=== PATIENT | female | born 1955 | race Caucasian/White ===

== ENCOUNTER → 2016-08-11 | Outpatient (CLI) | payer OTHER ==
[~2016-08-11] MED LIST: ADVIN25050 INH; CYCL10TA6 PO; LOPELIQ6 PO; ZNTT/150 PO
[2016-08-11 14:45] LABS: BASO % 0.7 %; BASO ABS # 0.05 K/uL (0-0.2); COMPLETE YES; EOS % 4.2 %; HEMATOCRIT 40.6 % (37-47); IG% 0.3 %; LYMPH % 31.5 %; LYMPH ABS # 2.38 K/uL (1.2-3.4); MEAN CELL VOLUME 88.1 fL (80-100); MEAN CORPUSCULAR HEMOGLOBIN 29.7 pg (25-34); MEAN CORPUSCULAR HGB CONC 33.7 g/dl (32-36); MEAN PLATELET VOLUME 12.3 fL (7.4-10.4); MONO % 7.9 %; NEUT % 55.4 %; PLATELET COUNT 227 K/uL (130-400); RED BLOOD COUNT 4.61 M/uL (4.2-5.4); WHITE BLOOD COUNT 7.55 K/uL (4.8-10.8)
[2016-08-11 15:00] LABS: ALT/SGPT 31 U/L (12-78); BLOOD UREA NITROGEN 22 mg/dl (7-18); BUN/CREATININE RATIO 18.7 (10-20); CALCIUM 9.2 mg/dl (8.5-10.1); CARBON DIOXIDE 24 mmol/L (21-32); CHLORIDE 107 mmol/L (98-107); CHOLESTEROL 204 mg/dl (0-200); GLUCOSE 78 mg/dl (70-99); POTASSIUM 3.8 mmol/L (3.5-5.1); SODIUM 142 mmol/L (136-145); TRIGLYCERIDES 213 mg/dl (0-150); VERY LOW DENSITY LIPOPROT CALC 43 mg/dl
[2016-08-11 15:09] LABS: ALB/GLOB RATIO 0.9 (0.9-2); ALKALINE PHOSPHATASE 64 U/L (45-117); AST/SGOT 25 U/L (15-37); CHOLESTEROL/HDL RATIO 3.5; HDL CHOLESTEROL 59 mg/dl; LDL CHOLESTEROL CALCULATED 102 mg/dl; TOTAL IRON BINDING CAPACITY 311 mcg/dl (250-450)
[2016-08-11 15:33] LABS: PROLACTIN 4.49 ng/mL; TESTOSTERONE,TOTAL 15.3 ng/dl
[2016-08-17 18:17] LABS: GLIADIN DEAMIDATED IgA AB 9 UNITS (<20); GLIADIN DEAMIDATED IgG AB 8 UNITS (<20); LEAD BLOOD 1 MCG/DL (0-9); MICROSOMAL AB <1 IU/ML (<9); PREGNENELONE **TC 31493X <5 ng/dL; SEX HORMONE BINDING GLOB 37 NMOL/L (14-73)
[2016-08-18 02:20] LABS: REFERENCE QUEST TEST REPORT
[2016-08-19 10:54] LABS: 23KDIGM BAND NONREACTIVE (NONREACTIVE); 39KDIGM BAND NONREACTIVE (NONREACTIVE); 41KDIGM BAND NONREACTIVE (NONREACTIVE)
== END | disposition home or self-care (01) ==
LOC: C.LAB 12:02
PROVIDERS: ATTEND Family Medicine
DX: R53.83 Other fatigue (principal); M25.50 Pain in unspecified joint; E28.9 Ovarian dysfunction, unspecified

== ENCOUNTER → 2016-12-13 | Outpatient (CLI) | payer OTHER ==
--- NOTE | 2016-12-14 06:23 | PAP/PSG TECHNICIAN REPORT ---
[facility] Clinical Physician Assistant Polysomnogram Report Study name: None Report date: 12/14/2016 Study date: 12/13/2016 Referring Physician: DR.STEVEN ZOHAIB M.D. Name: ANA ROSENTHAL Interpreting Physician: Lorne Sequeira D.O. Date of : 1955 Clinical Physician Assistant: CRYSTAL Ontiveros. Sex: Female Age: 61 StudyType: PSG Weight: 195 lbs Height: 61 years, Height 5' 5.5" BMI: 31.95 Medications: List not provided Patient History 61 yr. old female here for a diagnostic sleep study. Patient complains of getting " charley horses", EDS, restlessness and snoring. Patients [place] Sleepiness Scale Score is 19/24. Parameters Monitored NPSG: E1-M2, E2-M1, Fp1-M2, Fp2-M1, F3-M2, F4-M2, F4-M1, C3-M2, C4-M2, C4-M1, O1-M2, O2-M2, O2-M1, T3-M2, T4-M1, P3-M2, P4-M1, CHIN1, CHIN2, HR, EKG, Legs, PFLOW, SNOR, FLOW, CFLOW, Tidal Volume, THOR, ABDO, SpO2, PLTH, CPRESS, ETCO2 Wave, ETCO2, pH Sleep Architecture Sleep Stages Time at Lights Off 9:14:09 PM STAGES Time (min.) TST (%) Time at Lights On 5:34:09 AM Wake 210.0 -- Total Recording Time (TRT) 499.50 min. N1 29.5 10 Total Sleep Period (TSP) 404.0 min. N2 164.5 57 Total Sleep Time (TST) 289.5min. N3 48.0 17 Awake Time 210.0 min. REM 47.5 16 Wake after Sleep Onset 116.0 min. Sleep Efficiency (SE) 58 % Sleep Onset Latency (JULI) 94.5 min. Number of Stage 1 Shifts None Awakenings 20 Stage Changes 87 Number of REM periods 2 REM 47.5 16 REM Latency 219.5 min. NREM 242.0 84 Body Position Analysis Supine Right Left Side Prone Vertical Total Sleep Time (min.) 134.6 165.0 110.8 275.78 0.0 0.2 Total Sleep Time (%) 5% 57% 38% 95 0% N/A% Total Sleep Time REM (min.) 0.0 47.5 0.0 None 0.0 0.0 Total Sleep Time NREM (min.) 13.7 117.5 110.8 None 0.0 0.0 Intermittent Wake (min.) 120.9 48.3 40.6 None 0.0 0.2 Total Sleep Period (%) 10% None None None None None Arousals Myoclonus (PLM) * Events Count Index Events Count Index Spontaneous 5 1 Events Awake (PLMW) 121 34.6 Respiratory 3 0.6 Events Asleep w/ Arousal (PLMA) 9 1.9 PLM 7 2 Events Asleep w/o Arousal (PLMS) 64 13.3 Snoring 12 2 Total Asleep 73 15.1 Total 27 6 Total 194 23 Respiratory Analysis * CA OA MA CH H RERA Total Count 0 0 0 0 6 0 6 Index 0.0 0.0 0.0 0 1.2 0 1.2 Mean Duration 0.0 0.0 0.0 0.00 19.7 0.0 19.7 Longest Duration 0.0 0.0 0.0 0.00 0.0 0.0 33.5 Respiratory Event Summary Total Supine ~Supine Right Left Prone REM NREM Apneas Count 0 0 0 0 0 N/A 0 0 Index 0.0 0 0 0.0 0.0 N/A 0 0 Hypopneas (4% Desat) Count 6 1 5 0 5 N/A 0 6 Index 1.2 4.4 1 0.0 2.7 N/A 0.0 1.5 Apneas & All Hypopneas Count 6 1 5 0 5 N/A 0 6 Index 1.2 4 1 0 3 N/A 0.0 1.5 Respiratory Events (Air Chipper+All Hyp+RERA) Count 6 1 5 0 5 N/A 0 6 Index 1.2 4 1 0.0 2.7 N/A 0.0 1.5 Respiratory Related Arousal Count 3 1 2 0 2 N/A 0 3 Index 0.6 4 0 0 1 N/A 0 1 Snoring Analysis Supine Right Left Prone REM NREM Total Snore duration 15.8 min Snores count 29 552 471 N/A 3 1,049 1,052 Snore mean duration 0.9 Sec Snores index 127 201 255 N/A 3.8 260.1 218.0 TST with snoring (%) 5.5% Desaturation Event Summary: Minimum %SpO2 Event Count Mean/Min/Max Duration(sec.) Desaturation Index % Time In Bed > 90 18 32.4 / 16.5 / 59.0 2.4 99.1 86 - 90 0 N/A 0.0 0.2 81 - 85 1 18.8 / 18.8 / 18.8 22.0 0.6 76 - 80 1 11.0 / 11.0 / 11.0 129.7 0.1 71 - 75 0 N/A 0.0 0.0 66 - 70 0 N/A 0.0 0.0 61 - 65 0 N/A 0.0 0.0 56 - 60 0 N/A 0.0 0.0 51 - 55 0 N/A 0.0 0.0 < 50 0 N/A 0.0 0.0 Total REM NREM Awake <50% 0.0 min. 0.0 min. 0.0 min. 0.0 min. 51 - 60% 0.0 min. 0.0 min. 0.0 min. 0.0 min. 61 - 70% 0.0 min. 0.0 min. 0.0 min. 0.0 min. 71 - 80% 0.5 min. 0.0 min. 0.0 min. 0.5 min. 81 - 90% 3.4 min. 0.0 min. 0.3 min. 3.1 min. 91 - 100% 444.0 min. 47.5 min. 241.6 min. 154.9 min. Average 95 95 94 95 Minimum SpO2 78 93 90 78 Desaturation Event Index 2.4 0.0 2.5 2.9 # Desat. Events below 89% 3 N/A N/A 3 Time(%) with Saturation below 89% 0.8 0.0 0.0 0.8 Time(min.) with Saturation below 89% 3.5 0.0 0.0 3.5 Time (mins) REM (mins) NREM (mins) % of TST SpO2 Below 90% 1 N/A N1 0.0 SpO2 Below 88% 0 0 0 0 Heart Rate Analysis Min (bpm) Max (bpm) Average (bpm) Awake 38 188 80 NREM 70 92 79 REM 72 86 82 Overall 70 92 79 Supplemental O2 Values Minimum O2 level: None Value Start Time End Time Clinical Physician Assistant Comments MS. Rosenthal slept in the right, left, and supine positions. No cardiac arrhythmia or PLMs noted. No bruxism noted. Snoring was noted and scored as a 2 on a scale of 0 through 5. (0=no snoring, 5=snoring loud enough to be heard through a closed door or down the mo way) MS. Rosenthal awoke to use the restroom two times during the night, and got out of bed three times for Shay horses/cramps in the back of her legs got unhooked and out of bed five times). MS. Rosenthal stated, that was a normal night, I think my antibiotic causes the Shay horses. The final report will be interpreted and signed by a sleep physician. The completed physician report will then be placed in the patient medical record. Therapy (cm H2O) 0 TIB (min.) 499.5 TST (min.) 289.5 Sleep Onset (min.) 94.5 REM Onset From Sleep (min.) 219.5 Sleep Efficiency % 58 Wakefulness (%) 42 Wakefulness (min.) 210.0 NREM 1 (%) 10 NREM 1 (min.) 29.5 NREM 2 (%) 57 NREM 2 (min.) 164.5 NREM 3 (%) 17 NREM 3 (min.) 48.0 REM (%) 16 REM (min.) 47.5 # Arousals 27 Arousal Index 6 # Snore 1,052 Snore Index 218.0 AHI 1.2 AHI Supine 4 AHI Non-Supine 1 NREM AHI 1.5 REM AHI 0.0 RDI 1.2 # Obstructive Apnea 0 # Central Apnea 0 # Mixed Apnea 0 # Hypopneas 6 RERAs 0 Total Respiratory Events 11 Time Below SpO2 89% (min.) 0.0 Mean NREM SpO2 (%) 94 Mean REM SpO2 (%) 95 Mean Sleep SpO2 (%) 94 Min NREM SpO2 (%) 90 Min REM SpO2 (%) 93 Position Supine (min.) 134.6 Position Non-supine (min.) 275.8 LM Index Sleep 15.1 LM Index NREM 16.1 LM Index REM 10.1 Mean Heart Rate (bpm) 79 Min Heart Rate (bpm) 70
--- NOTE | 2016-12-16 07:47 | POLYSOMNOGRAPH REPORT ---
DATE OF STUDY: 12/13/2016. REFERRING PHYSICIAN: Dr. Khoi Juarez. CLINICAL DATA: The patient is a 61-year-old female with complaints of snoring, restless sleep, nocturnal leg cramps, and excessive daytime somnolence. Her [place] Sleepiness Score is 16. She has a history of fibromyalgia. Her BMI is 31.95. This was a diagnostic in-lab sleep study. SLEEP ARCHITECTURE: The total sleep period was 404 minutes. The total sleep time was 289.5 minutes. The sleep efficiency was moderately reduced to 58%. Sleep latency was significantly prolonged to 94.5 minutes. Wake after sleep onset was increased to 116 minutes. The REM latency was prolonged to 219.5 minutes. Sleep consisted of stage N1 10%, stage N2 57%, stage N3 17%, and stage REM 16%. AROUSAL DATA: The patient had 27 arousals including 5 spontaneous, 3 respiratory, 7 PLM, and 12 snoring arousals. The arousal index was 6. PLM DATA: The patient had 73 periodic limb movements of sleep for an index of 15.1. There were 9 arousals associated with the limb movements for a PLM arousal index of 1.9. EKG: The underlying cardiac rhythm was normal sinus. No arrhythmias were seen. The cardiac rates ranged from 70-92 beats per minute with an average of 79 beats per minute. RESPIRATORY DATA: The patient had a total of only 6 respiratory events throughout the night, all hypopneas. Hypopneas were scored according to the 4% desaturation rule. The apnea hypopnea index was only 1.2. This reflects no significant sleep apnea. The mean duration of hypopneas was 19.7 seconds. OXIMETRY DATA: The average saturation throughout the night was 95%. Her saturations stayed above 90% except for some technical decreases due to the patient getting out of bed during the night. VISUAL DESIGNER COMMENTS: The patient slept in the right, left, and supine positions. No bruxism noted. Snoring was noted and scored as a 2 on a scale of 0 through 5. The patient awoke to use the restroom 2 times during the night and got out of bed 3 times because of cramps in the back of her legs. The patient indicated this was a normal night for her. IMPRESSIONS: 1. Primary snoring. 2. Nocturnal leg cramps. 3. Periodic limb movement disorder. COMMENTS: The patient has no significant sleep apnea. Her sleep efficiency was low. She had difficulty initiating sleep and maintaining sleep. She had a relatively mild number of periodic limb movements with few arousals. It is unlikely that the leg movements were disturbing her sleep. She was disturbed by the nocturnal leg cramps as noted. The patient is taking Cymbalta. This medication can contribute to periodic limb movements. RECOMMENDATIONS: Followup is deferred to Dr. Juarez who referred her for this study.
== END | disposition home or self-care (01) ==
LOC: C.NEUR 20:00
PROVIDERS: ATTEND Family Medicine
DX: G47.10 Hypersomnia, unspecified (principal)

== ENCOUNTER → 2017-02-08 | Outpatient (CLI) | payer OTHER ==
--- NOTE | 2017-02-08 09:40 | DIAGNOSTIC IMAGING REPORT ---
ABDOMEN LIMITED (US) CLINICAL HISTORY: 61 years-old Female presenting with RIGHT LOWER ABD PAIN. TECHNIQUE: Real-time grayscale ultrasound imaging of the right lower quadrant was performed. COMPARISON: CT from 11/25/2015. FINDINGS: The right lower quadrant at the site of clinical concern demonstrates and ill-defined isoechoic region of soft tissue measuring 5 cm at appears to extend anteriorly beyond the peritoneum. This appears to reduce with compression. IMPRESSION: 1. Apparent right lower quadrant ventral hernia, which may be fat and/or bowel containing and is reducible. Electronically signed by: Ras Laws M.D. 02/08/2017 9:39 AM Dictated Date/Time: 02/08/2017 9:35 AM
== END | disposition home or self-care (01) ==
LOC: C.ULTRBC 09:14
PROVIDERS: ATTEND Family Medicine
DX: R10.31 Right lower quadrant pain (principal); K43.9 Ventral hernia without obstruction or gangrene

== ENCOUNTER 2022-12-26 07:54 | Inpatient (IN) ==
[2022-12-26 08:49] LABS: Basophils # (auto) 0.05 K/uL (0-0.2); Basophils % (auto) 0.4 %; Eosinophils # (auto) 0.17 K/uL (0-0.50); Eosinophils % (auto) 1.5 %; Hemoglobin 14.3 g/dl (12.0-16.0); Immature Granulocytes # (auto) 0.05 K/uL (0.01-0.20); Immature Granulocytes % (auto) 0.4 %; Lymphocytes # (auto) 1.42 K/uL (1.2-3.4); Lymphocytes % (auto) 12.4 %; Mean Corpuscular Hemoglobin 29.8 pg (25.0-34.0); Mean Corpuscular Hgb Conc 33.3 g/dL (32.0-36.0); Mean Corpuscular Volume 89.6 fL (80.0-100.0); Mean Platelet Volume 10.7 fL (9.4-12.4); Monocytes % (auto) 7.9 %; Neutrophils # (auto) 8.82 K/uL (1.40-6.50); Neutrophils % (auto) 77.4 %; Platelet Count 249 K/uL (130-400); RDW Coefficient of Variation 13.8 % (11.5-14.5); RDW Standard Deviation 44.7 fL (36.4-46.3); White Blood Count 11.41 K/ul (4.8-10.8)
[2022-12-26] MEDS ORDERED: SODIUM CHLORIDE 0.9% 1000ML 1,000 ML IV ONE (08:55)
[2022-12-26] MEDS ORDERED: KETOROLAC TROMETHAMINE 15 MG/ML VIAL IV STA (08:55)
[2022-12-26] MEDS ORDERED: ONDANSETRON INJ 2 MG/ML 2 ML VIAL IV STA (08:55)
[2022-12-26] MEDS ORDERED: ONDANSETRON INJ 2 MG/ML 2 ML VIAL ONE (08:56)
[2022-12-26 09:02] LABS: Albumin Globulin Ratio 1.1 (0.9-2); Albumin Level 3.8 gm/dl (3.4-5.0); BUN Creatinine Ratio 21.4 (10-20); Bilirubin,Total 0.8 mg/dl (0.2-1.0); Calcium 9.7 mg/dl (8.6-10.3); Creatinine Clr Calc Pharmacy 62.7 ml/min; Est GFR (African American) 69.2 ml/min; Est GFR (Non-African American) 59.7 ml/min; Globulin 3.5 gm/dl (2.5-4.0); Potassium 3.7 mmol/L (3.5-5.1); Total Protein 7.3 gm/dl (6.0-8.3)
[2022-12-26] MEDS ORDERED: OPTIRAY 320 100ml IV ONE (10:03)
--- NOTE | 2022-12-26 10:23 | CT Scan Report ---
CT OF THE ABDOMEN AND PELVIS WITH CONTRAST CLINICAL HISTORY: Vomiting. COMPARISON STUDY: CT of the abdomen and pelvis November 25, 2015, MR enterography December 09, 2015. TECHNIQUE: Following IV administration of 94 mL of Optiray, axial images of the abdomen and pelvis we re obtained from the lung bases to the proximal femurs. Images were reviewed in the axial, sagittal, and coronal planes. IV contrast was administered without complication. Automated exposure control wa s utilized for the study. A dose lowering technique was utilized adhering to the principles of ALARA . CT DOSE: 1407.42 mGy.cm FINDINGS: Lung bases are unremarkable. No pneumatosis, free air or portal venous gas is present. Ther e are gallstones within the gallbladder. There is no evidence for acute cholecystitis. Liver, spleen, adrenal glands and right kidney are normal. There is moderate left renal atrophy. No hydronephrosis. Major vasculature is patent. The majority of the small bowel is moderately dilated and fluid-filled. Small bowel feces sign is noted with transition point within the right lower quadrant, within the il eum. This is shown on image 260 of 321. The transition site is at or just distal to the small bowel a nastomosis. Distal small bowel is decompressed. The appendix is normal. There is a small amount of as sociated ascites within the abdomen and pelvis. There is infiltration within the pelvis. A small amou nt of interloop fluid is also noted. No lymphadenopathy is present. IMPRESSION: Findings consistent with a moderate grade partial small bowel obstruction with transitio n point at or just distal to an ileal anastomosis. Small amount of associated ascites and mesenteric infiltration. No pneumatosis, free air or portal venous gas. ACT 112: Negative or not required by law. Electronically signed by: Barrie Donahue M.D. 12/26/2022 10:21 AM
[2022-12-26 10:32] LABS: Appearance Urine Clear (Clear); Bilirubin Urine Negative (Negative); Blood Urine Negative (Negative); Color Urine Yellow; Glucose Urine UA Negative (Negative); Ketones Urine Negative (Negative); Leukocyte Esterase Urine Negative (Negative); Nitrite Urine Negative (Negative); Protein Urine Negative (Negative); Specific Gravity Urine 1.024 (1.000-1.030); Urobilinogen Urine Negative (Negative); pH Urine 6.5 (4.5-7.5)
--- NOTE | 2022-12-26 11:27 | History & Physical Report ---
Date of Service December 26, 2022 Assessment & Plan (1) Small bowel obstruction: Plan: Acute partial small bowel obstruction - likely related to adhesions with previous history of mass removal, resection, and re-anastamosis. - will place NGT to LIWS as patient with persistent vomiting through PM and this morning - kub- with adequate NGT palcement - Appreciate General Surgery evaluation - IVF - Pain control- IV tylenol, Morphine if needed - KUB in morning- can consider contrasted follow through study if not improving - NPO (2) HTN (hypertension): Plan: Hold oral medications- PRN available if SBP >180 (3) Psoriatic arthritis: Plan: Continue methylpred 4mg IV- convert back to PO when able - stress dose if indicated - Hold other DMARDs (4) COPD (chronic obstructive pulmonary disease): Plan: Well controlled- rare use of her ANDRES at home - Continue Advair - was previously on Trelegy, but was cost prohibitive (5) Mixed hyperlipidemia: Plan: Hold Statin while NPO (6) Stage 3b chronic kidney disease: Plan: Avoid further nephrotoxic medications as able - IVF - Daily BMP History of Present Illness Primary Care Provider: Khoi Juarez MD 67 YOF with medical history of: COPD(quit smoking 2015), partial thyroidectomy, RA, Bowel resection with re-anastomosis, hysterectomy, diverticulitis, HTN, cellulitis (just finished course of doxycycline). Patient presents to the EMD for about 18 hours of abdominal pain and nausea/vomiting. The patient reports that yesterday following lunch- at ~1400- she had an onset of lower quadrant abdominal pain that was sharp and stabbing in nature. This progressed to sharp pain throughout her abdomen and was associated with multiple episodes of vomiting- Patient reports 25 times throughout the night and 3-5 times this morning. The vomitus is brown and foul smelling per the patient. Following the vomiting she would note that she would have chills, but denies persistent fevers at home. In the EMD the patient underwent CT of her abdomen and pelvis, received Zofran for nausea, Toradol for pain, and 0.9% normal saline infusion. The hospitalist service was consulted for admission- requested surgical consultation and evaluation. Patient will be admitted for bowel obstruction, will place NGT secondary to her persistent vomiting and "moderate grade partial SBO" noted on imaging. Patient will be kept NPO. CODE: FULL COVID: NEGATIVE Allergies Allergy/AdvReac Type Severity Reaction Status Date / Time levofloxacin Allergy Unknown tendonitis Unverified 12/26/22 11:38 ELIDA Inhibitors Allergy Cough Verified 12/26/22 11:38 spironolactone Allergy Cramps Verified 12/26/22 11:38 Home Medications Medication Instructions Recorded Confirmed Type duloxetine 60 mg capsule,delayed 60 mg PO QDL 11/30/20 12/26/22 History release gabapentin 300 mg capsule 300 mg PO TID #270 caps 03/09/22 12/26/22 Rx sulindac 150 mg tablet 150 mg PO BID 04/07/22 12/26/22 History albuterol sulfate 90 mcg/actuation 2 puff inhalation Q6H PRN 05/03/22 12/26/22 Rx aerosol inhaler shortness of breath or wheezing #6.7 grams albuterol sulfate 1.25 mg/3 mL 1.25 mg (3 mL) inhalation QID PRN 09/21/22 12/26/22 Rx solution for nebulization shortness of breath or wheezing #90 mL hydrocodone-homatropine 5 mg-1.5 5 ml PO Q6H PRN cough #200 mL 09/21/22 12/26/22 Rx mg/5 mL (5 mL) oral syrup (Hycodan) nebulizer accessories #1 ea 09/21/22 12/08/22 Rx nebulizers #1 ea 09/21/22 12/08/22 Rx cholecalciferol (vitamin D3) 125 125 mcg PO .Twice a week #30 caps 11/03/22 12/26/22 Rx mcg (5,000 unit) capsule carvedilol 6.25 mg tablet 6.25 mg PO BID #180 tabs 11/08/22 12/26/22 Rx hydroxyzine HCl 25 mg tablet 25 mg PO TID PRN itching #60 tabs 11/18/22 12/26/22 Rx P[employer] Cognitive Support 1 dose PO QDL 12/23/22 12/26/22 History beta-glucan 250 mg capsule 250 mg PO QDL 12/23/22 12/26/22 History esomeprazole magnesium 20 mg 20 mg PO BID 12/23/22 12/26/22 History tablet,delayed release fluticasone 500 mcg-salmeterol 50 1 inh inhalation BID 12/23/22 12/26/22 History mcg/dose blistr powdr for inhalation (Advair Diskus) losartan 100 mg tablet 100 mg PO QAM 12/23/22 12/26/22 History methylprednisolone 4 mg tablet 4 mg PO QAM 12/23/22 12/26/22 History ascorbic acid (vitamin C) 500 mg 500 mg PO QDL 12/26/22 12/26/22 History tablet (Vitamin C) potassium gluconate 595 mg (99 mg) 595 mg PO QDL 12/26/22 12/26/22 History tablet vitamin B complex 1 tab PO QDL 12/26/22 12/26/22 History Past Med/Surg History Medical History Barretts esophagus COPD (chronic obstructive pulmonary disease) Diverticular disease Dry eye Dry mouth Fibromyalgia GERD (gastroesophageal reflux disease) History of diverticulitis History of migraine HTN (hypertension) Lyme arthritis PONV (postoperative nausea and vomiting) Psoriatic arthritis Stage 3b chronic kidney disease 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 Thyroid goiter hx Surgical History H/O laparoscopy History of bladder surgery bladder sling History of bunionectomy History of colonoscopy History of esophagogastroduodenoscopy (EGD) History of partial thyroidectomy S/P closure of ileostomy 04/06/16 S/P hernia repair ventral hernia S/P hysterectomy S/P ileostomy 01/21/16 Status post right foot surgery Family History Father Heart disease Hypertension Arthritis Dementia Mother Afib Lung cancer History of aortic valve repair History of hip replacement times 2 Sister History of hip replacement Brother Hypertension Social History Smoking Status: Former smoker Tobacco Type: Cigarettes Age Started Using Tobacco: 15; Age Quit Using Tobacco: 60; packs per day: 0.50; Second Hand Exposure: No; Do You Dip or Chew Tobacco: No; Hx Alcohol Use: No Hx Substance Use: No Preferred Language: [place] Communication Ability: Effective Visual Impairment: Limited Hearing Ability: Normal Hairspring Truer Required: No Beliefs That Will Affect Care: None marital status: Current Living Situation: Spouse current occupational status: retired How many Children do You have: 1 Feels Safe at Home: Yes Childhood Exposure to Second-Hand Smoke: Yes Diet: regular caffeine: Yes Dental Care, Regularly: Yes Physical Activity Frequency: Does not Exercise Seatbelt Use: always Sunscreen Use: No Do you think of yourself as: straight/heterosexual Assistive Devices: Glasses Review of Systems Review of Systems: REVIEW OF SYSTEMS: Constitutional: (+) chills, no fever, sweats Eyes: No diplopia, no worsening or blurred vision ENT: normal hearing, no trouble swallowing Respiratory: No cough, sputum, dyspnea at rest or on exertion Cardiovascular: No chest pain, tightness or palpitations Abdomen: (+) pain, nausea, vomiting, diarrhea Musculoskeletal: (+) RA, joint pain, calf pain, swelling Neurologic: No weakness, numbness/tingling, or balance problems Psychiatric: No anxiety or depression Skin: (+) bruising and, just recent cellulitis to lower extremities Physical Exam Physical Exam: PHYSICAL EXAM: General: awake, alert, no apparent distress Head: Normocephalic, atraumatic ENT: PERRLA, EOMI, no pharyngeal exudate, mucous membranes moist Neuro: AAO x 3, speech clear and appropriate, strength intact bilaterally 5/5, sensation intact and equal all extremities and dermatomes, no pronator drift Chest: equal rise and fall of the chest, no accessory muscle use, no heaves or thrills, Clear to auscultation, on room air, Cardiac: Regular rate and rhythm, telemetry reviewed-NSR, skin warm dry, cap refill <3 seconds, peripheral pulses +2 no JVD, no murmur, no edema GI: NABS x 4 quadrants, soft, tender to palpation-lower quadrants,, no rebound, guarding or tenderness : Spontaneously voiding, no pain, no CVA tenderness, Extremities: Normal inspection, no peripheral edema or erythema, calfs nontender to palpation Psych: Normal mood and affect Skin: bruising to upper extremities Results & Data Results & Data Vital Signs (Past 12 Hours) Vital Signs Temp Pulse Resp BP Pulse Ox O2 Del Method 12/26/22 10:14 91 H 21 96 12/26/22 10:14 173/97 H 12/26/22 09:30 87 15 94 07/03/23 09:30 156/95 H 12/26/22 09:00 93 H 15 94 12/26/22 09:00 176/107 H 12/26/22 08:30 90 17 95 12/26/22 08:30 184/108 H 12/26/22 08:22 91 H 23 94 12/26/22 08:48 88 12/26/22 08:26 91 H 20 95 Room Air 12/26/22 08:03 37.1 C 94 H 20 160/132 H 98 Room Air Laboratory Results Laboratory Results - last 24 hr 12/26/22 12/26/22 12/26/22 08:24 08:24 10:12 WBC 11.41 H RBC 4.80 Hgb 14.3 Hct 43.0 MCV 89.6 MCH 29.8 MCHC 33.3 RDW Std Deviation 44.7 RDW Coeff of Rohan 13.8 Plt Count 249 MPV 10.7 Immature Gran % (Auto) 0.4 Neut % (Auto) 77.4 Lymph % (Auto) 12.4 [place] % (Auto) 7.9 Eos % (Auto) 1.5 Baso % (Auto) 0.4 Neut # (Auto) 8.82 H Lymph # (Auto) 1.42 [place] # (Auto) 0.90 H Eos # (Auto) 0.17 Baso # (Auto) 0.05 Immature Gran # (Auto) 0.05 Sodium 144 Potassium 3.7 Chloride 106 Carbon Dioxide 30 Anion Gap 8 BUN 21 Creatinine 0.98 Est Cr Clr Drug Dosing 62.7 Est GFR ( Amer) 69.2 Est GFR (Non-Af Amer) 59.7 BUN/Creatinine Ratio 21.4 H Glucose 147 H Calcium 9.7 Total Bilirubin 0.8 AST 24 ALT 23 Alkaline Phosphatase 68 Total Protein 7.3 Albumin 3.8 Globulin 3.5 Albumin/Globulin Ratio 1.1 Lipase 72 Urine Color Yellow Urine Appearance Clear Urine pH 6.5 Ur Specific Wallace 1.024 Urine Protein Negative Urine Glucose (UA) Negative Urine Ketones Negative Urine Blood Negative Urine Nitrite Negative Urine Bilirubin Negative Urine Urobilinogen Negative Ur Leukocyte Esterase Negative SARS-CoV-2, RNA, NAAT 12/26/22 10:37 WBC RBC Hgb Hct MCV MCH MCHC RDW Std Deviation RDW Coeff of Rohan Plt Count MPV Immature Gran % (Auto) Neut % (Auto) Lymph % (Auto) [place] % (Auto) Eos % (Auto) Baso % (Auto) Neut # (Auto) Lymph # (Auto) [place] # (Auto) Eos # (Auto) Baso # (Auto) Immature Gran # (Auto) Sodium Potassium Chloride Carbon Dioxide Anion Gap BUN Creatinine Est Cr Clr Drug Dosing Est GFR ( Amer) Est GFR (Non-Af Amer) BUN/Creatinine Ratio Glucose Calcium Total Bilirubin AST ALT Alkaline Phosphatase Total Protein Albumin Globulin Albumin/Globulin Ratio Lipase Urine Color Urine Appearance Urine pH Ur Specific Wallace Urine Protein Urine Glucose (UA) Urine Ketones Urine Blood Urine Nitrite Urine Bilirubin Urine Urobilinogen Ur Leukocyte Esterase SARS-CoV-2, RNA, NAAT NEGATIVE Diagnostic Findings Abdomen/Pelvis CT 12/26/22 08:56 CT OF THE ABDOMEN AND PELVIS WITH CONTRAST CLINICAL HISTORY: Vomiting. COMPARISON STUDY: CT of the abdomen and pelvis November 25, 2015, MR enterography December 09, 2015. TECHNIQUE: Following IV administration of 94 mL of Optiray, axial images of the abdomen and pelvis were obtained from the lung bases to the proximal femurs. Images were reviewed in the axial, sagittal, and coronal planes. IV contrast was administered without complication. Automated exposure control was utilized for the study. A dose lowering technique was utilized adhering to the principles of ALARA. CT DOSE: 1407.42 mGy.cm FINDINGS: Lung bases are unremarkable. No pneumatosis, free air or portal venous gas is present. There are gallstones within the gallbladder. There is no evidence for acute cholecystitis. Liver, spleen, adrenal glands and right kidney are normal. There is moderate left renal atrophy. No hydronephrosis. Major vasculature is patent. The majority of the small bowel is moderately dilated and fluid-filled. Small bowel feces sign is noted with transition point within the right lower quadrant, within the ileum. This is shown on image 260 of 321. The transition site is at or just distal to the small bowel anastomosis. Distal small bowel is decompressed. The appendix is normal. There is a small amount of associated ascites within the abdomen and pelvis. There is infiltration within the pelvis. A small amount of interloop fluid is also noted. No lymphadenopathy is present. IMPRESSION: Findings consistent with a moderate grade partial small bowel obstruction with transition point at or just distal to an ileal anastomosis. Small amount of associated ascites and mesenteric infiltration. No pneumatosis, free air or portal venous gas. ACT 112: Negative or not required by law. Electronically signed by: Barrie Donahue M.D. 12/26/2022 10:21 AM Medications Administered Discontinued Medications Sodium Chloride (Nss 1000ml) 1,000 mls @ 999 mls/hr IV .Q1H1M ONE Stop: 12/26/22 09:55 Last Infusion: 12/26/22 09:51 Dose: 0 mls/hr Documented By: Admin: 12/26/22 08:59 Dose: 999 mls/hr Documented By: NITHIN Ioversol (Optiray 320 100ml) 94 ml IV ONCE ONE Stop: 12/26/22 10:04 Last Admin: 12/26/22 10:04 Dose: 94 ml Documented By: LOGAN Ketorolac Tromethamine (Ketorolac Tromethamine 15 Mg/Ml Vial) 15 mg IV NOW STA Stop: 12/26/22 08:56 Last Admin: 12/26/22 09:00 Dose: 15 mg Documented By: NITHIN Ondansetron HCl (Ondansetron Inj 2 Mg/Ml 2 Ml Vial) Confirm Administered Dose 4 mg .ROUTE .STK-MED ONE Stop: 12/26/22 08:57 Last Admin: 12/26/22 08:59 Dose: Not Given Documented By: NITHIN Ondansetron HCl (Ondansetron Inj 2 Mg/Ml 2 Ml Vial) 4 mg IV NOW STA Stop: 12/26/22 08:56 Last Admin: 12/26/22 08:59 Dose: 4 mg Documented By: NITHIN Home Medications duloxetine 60 mg capsule,delayed release 60 mg PO QDL 11/30/20 [History Confirmed 12/23/22] gabapentin 300 mg capsule 300 mg PO TID #270 caps 03/09/22 [Rx Confirmed 12/23/22] sulindac 150 mg tablet 150 mg PO BID 04/07/22 [History Confirmed 12/23/22] albuterol sulfate 90 mcg/actuation aerosol inhaler 2 puff inhalation Q6H PRN shortness of breath or wheezing #6.7 grams 05/03/22 [Rx Confirmed 12/23/22] ascorbic acid (vitamin C) [Vitamin C] 1 tab PO QDL 08/24/22 [History Confirmed 12/23/22] potassium gluconate [potassium] 1 tab PO QAM 08/24/22 [History Confirmed 12/23/22] vitamin B complex 1 dose PO QDL 08/24/22 [History Confirmed 12/23/22] albuterol sulfate 1.25 mg/3 mL solution for nebulization 1.25 mg (3 mL) inhalation QID PRN shortness of breath or wheezing #90 mL 09/21/22 [Rx Confirmed 12/23/22] hydrocodone-homatropine 5 mg-1.5 mg/5 mL (5 mL) oral syrup (Hycodan) 5 ml PO Q6H PRN cough #200 mL 09/21/22 [Rx Confirmed 12/23/22] nebulizer accessories #1 ea 09/21/22 [Rx Confirmed 12/08/22] nebulizers #1 ea 09/21/22 [Rx Confirmed 12/08/22] cholecalciferol (vitamin D3) 125 mcg (5,000 unit) capsule 125 mcg PO .Twice a week #30 caps 11/03/22 [Rx Confirmed 12/23/22] carvedilol 6.25 mg tablet 6.25 mg PO BID #180 tabs 11/08/22 [Rx Confirmed 12/23/22] hydroxyzine HCl 25 mg tablet 25 mg PO TID PRN itching #60 tabs 11/18/22 [Rx Con firmed 12/23/22] furosemide 40 mg tablet 20 mg PO BID 11/24/22 [History Confirmed 12/23/22] [employer] Cognitive Support 1 dose PO QDL 12/23/22 [History Confirmed 12/23/22] beta-glucan 250 mg capsule 250 mg PO QDL 12/23/22 [History Confirmed 12/23/22] esomeprazole magnesium 20 mg tablet,delayed release 20 mg PO BID 12/23/22 [History Confirmed 12/23/22] fluticasone 500 mcg-salmeterol 50 mcg/dose blistr powdr for inhalation (Advair Diskus) 1 inh inhalation BID 12/23/22 [History Confirmed 12/23/22] losartan 100 mg tablet 100 mg PO QAM 12/23/22 [History Confirmed 12/23/22] methylprednisolone 4 mg tablet 4 mg PO QAM 12/23/22 [History Confirmed 12/23/22] Active Medications Sodium Chloride (Nss 1000ml) 1,000 mls @ 125 mls/hr IV .Q8H DON Stop: 01/25/23 10:29 ECG Additional Comments: pending on admission Code Status & VTE Plan VTE Prophylaxis Plan VTE Prophylaxis will be ordered: Yes Supervising Physician Co-Signing Physician Notes I personally saw and examined the patient. I verified all zelaya points and agree with DEREK Chu with the following exceptions and/or additions: 67 year old female presents with abdominal pain, nausea and vomiting. O/E NG tube now in place draining brown liquid, A&Ox3, HS RRR, no murmurs, Chest CTAB, Abdo soft, tenderness lower abdo mild tenderness, no rebound A/P Small bowel obstruction - NG tube, IV fluids, consult general surgery given transition point at anastomosis site and no prior episodes. PG Care Time/CCT Total # of Minutes Spent Total Time Spent with Patient: Total time spent is greater than 50% in coordination of care (as documented) at patient's floor/unit and/or counseling patient: Coding Level of Care Code 52189 INT INP/OBS CARE 75MIN Diagnoses Small bowel obstruction K56.609 HTN (hypertension) I10 Psoriatic arthritis L40.50 COPD (chronic obstructive pulmonary disease) J44.9 Mixed hyperlipidemia E78.2 Stage 3b chronic kidney disease N18.32
--- NOTE | 2022-12-26 12:05 | XRay Report ---
KUB HISTORY: evaluation of NGT placement COMPARISON: Chest x-ray 10/24/2022. Abdomen and pelvis CT 12/26/2022.. FINDINGS: A few dilated loops of small bowel within the abdomen consistent with the patient's known s mall bowel obstruction. No renal calculi. No ureteral calculi. No pneumoperitoneum or pneumatosis. N asogastric tube terminates in the stomach with the tip at the fundus of the stomach. Contrast within the urinary system due to the recent CT examination. IMPRESSION: 1. Nasogastric tube terminates in the stomach. 2. Persistent small bowel obstruction pattern. ACT 112: Negative or not required by law. Electronically signed by: Manuel Rios M.D. 12/26/2022 12:03 PM
[2022-12-26] MEDS: SODIUM CHLORIDE 0.9% 1000ML 1,000 ML IV SCH ×2 (12:49→20:22)
[2022-12-26] MEDS ORDERED: GLUCOSE 10 TAB/TUBE PO PRN (14:13)
[2022-12-26] MEDS ORDERED: GLUCOSE 40% GEL 15 GM TUBE PO PRN (14:13)
[2022-12-26] MEDS ORDERED: ALBUTEROL HFA 8 GM INHALER INH PRN (14:13)
[2022-12-26] MEDS ORDERED: CARBOHYDRATES FOR HYPOGLYCEMIA PO PRN (14:13)
[2022-12-26] MEDS ORDERED: MoRPHine SULFATE 2 MG/ML CARP IV PRN (14:13)
[2022-12-26] MEDS ORDERED: ONDANSETRON INJ 2 MG/ML 2 ML VIAL IV PRN (14:13)
[2022-12-26] MEDS ORDERED: DEXTROSE 50% 50 ML SYRINGE IV PRN (14:13)
[2022-12-26] MEDS ORDERED: GLUCAGON FOR INJ 1 MG VIAL SQ PRN (14:13)
[2022-12-26] MEDS ORDERED: ALBUTEROL 0.5% NEB SOLN 2.5 MG/0.5 ML VIAL INH PRN (14:19)
--- NOTE | 2022-12-26 14:39 | Surgery Consultation ---
Date of Consultation December 26, 2022 Assessment & Plan (1) Small bowel obstruction: Plan 67-year-old female with a history of exploratory laparotomy for diverticulitis and possible colonic mass in 2015 at [facility] with ileostomy creation and then ileostomy reversal few months later presented to the emergency room with abdominal pain, bloating, nausea, and vomiting. CT scan consistent with a moderate partial grade obstruction at the site of anastomosis. NG tube placed currently passing gas and had 2 bowel movements. Mild leukocytosis, afebrile. Abdominal exam with no distention, soft, mild tenderness in the right lower quadrant. Plan: No acute surgical intervention recommended at this time. Would continue conservative measures with NG tube to low intermittent suction, n.p.o. for bowel rest, IV fluid hydration, IV antiemetics and IV pain medication as needed. Repeat a.m. labs while n.p.o. Encourage ambulation Continue medical management We will follow along Dr. Calvillo has seen and examined patient and agrees with above. Supervising Physician Co-Signing Physician Notes I have seen and examined the patient personally and agree with the above assessment and plan. No acute surgical intervention recommended. Proceed with conservative management with NG tube, n.p.o., IV fluid hydration. Encourage ambulation. We will follow along. History of Present Illness Reason for Consultation: Small bowel obstruction Requesting Physician: Fawad Holm MD Attending Physician: Fawad Holm MD History of Present Illness Eliana is a 67-year-old female with a past medical history of hypertension, COPD, neuropathy, polymyalgia, vitamin D deficiency, Roldan's esophagus, lymphedema, stage IIIb chronic kidney disease, tubular adenocarcinoma and diverticulitis of the right colon who had ex lap with a right colon resection and ileostomy placement in 2015 in [place] with subsequent ileostomy reversal a few months later presented to the emergency room with complaint of abdominal pain, nausea, vomiting x27 times, abdominal bloating that started yesterday afternoon at a picnic. She states she has not had a bowel obstruction since her surgery in 2016. States it was an extensive surgery involving an oncology surgeon as well as a general surgeon and a bladder surgeon and had to have part of the ureter resected and reconnected. She states that there was no cancer involved however not completely sure of the history as we do not have the records. ER work-up included labs which showed mild leukocytosis of 11.41. She has been afebrile and hemodynamically stable. CT scan of the abdomen and pelvis with contrast showing moderately dilated and fluid-filled small bowel with small bowel feces sign with a transition point in the right lower quadrant within the ileum this transition site is just distal or at the small bowel anastomosis consistent with a moderate grade partial small bowel obstruction. She had an NG tube placed in the emergency room and currently is feeling better in regards to abdominal pain but has discomfort due to the NG tube. She states she is passing gas and feels like she has to have a bowel movement. Allergies Allergy/AdvReac Type Severity Reaction Status Date / Time levofloxacin Allergy Unknown tendonitis Unverified 12/26/22 11:38 ELIDA Inhibitors Allergy Cough Verified 12/26/22 11:38 spironolactone Allergy Cramps Verified 12/26/22 11:38 Home Medications Medication Instructions Recorded Confirmed Type duloxetine 60 mg capsule,delayed 60 mg PO QDL 11/30/20 12/26/22 History release gabapentin 300 mg capsule 300 mg PO TID #270 caps 03/09/22 12/26/22 Rx sulindac 150 mg tablet 150 mg PO BID 04/07/22 12/26/22 History albuterol sulfate 90 mcg/actuation 2 puff inhalation Q6H PRN 05/03/22 12/26/22 Rx aerosol inhaler shortness of breath or wheezing #6.7 grams albuterol sulfate 1.25 mg/3 mL 1.25 mg (3 mL) inhalation QID PRN 09/21/22 12/26/22 Rx solution for nebulization shortness of breath or wheezing #90 mL hydrocodone-homatropine 5 mg-1.5 5 ml PO Q6H PRN cough #200 mL 09/21/22 12/26/22 Rx mg/5 mL (5 mL) oral syrup (Hycodan) nebulizer accessories #1 ea 09/21/22 12/08/22 Rx nebulizers #1 ea 09/21/22 12/08/22 Rx cholecalciferol (vitamin D3) 125 125 mcg PO .Twice a week #30 caps 11/03/22 12/26/22 Rx mcg (5,000 unit) capsule carvedilol 6.25 mg tablet 6.25 mg PO BID #180 tabs 11/08/22 12/26/22 Rx hydroxyzine HCl 25 mg tablet 25 mg PO TID PRN itching #60 tabs 11/18/22 12/26/22 Rx [employer] Cognitive Support 1 dose PO QDL 12/23/22 12/26/22 History beta-glucan 250 mg capsule 250 mg PO QDL 12/23/22 12/26/22 History esomeprazole magnesium 20 mg 20 mg PO BID 12/23/22 12/26/22 History tablet,delayed release fluticasone 500 mcg-salmeterol 50 1 inh inhalation BID 12/23/22 12/26/22 History mcg/dose blistr powdr for inhalation (Advair Diskus) losartan 100 mg tablet 100 mg PO QAM 12/23/22 12/26/22 History methylprednisolone 4 mg tablet 4 mg PO QAM 12/23/22 12/26/22 History ascorbic acid (vitamin C) 500 mg 500 mg PO QDL 12/26/22 12/26/22 History tablet (Vitamin C) potassium gluconate 595 mg (99 mg) 595 mg PO QDL 12/26/22 12/26/22 History tablet vitamin B complex 1 tab PO QDL 12/26/22 12/26/22 History Patient History Medical History Barretts esophagus COPD (chronic obstructive pulmonary disease) Diverticular disease Dry eye Dry mouth Fibromyalgia GERD (gastroesophageal reflux disease) History of diverticulitis History of migraine HTN (hypertension) Lyme arthritis PONV (postoperative nausea and vomiting) Psoriatic arthritis Stage 3b chronic kidney disease no precision agronomist Thyroid goiter hx Surgical History H/O laparoscopy History of bladder surgery bladder sling History of bunionectomy History of colonoscopy History of esophagogastroduodenoscopy (EGD) History of partial thyroidectomy S/P closure of ileostomy 04/06/16 S/P hernia repair ventral hernia S/P hysterectomy S/P ileostomy 01/21/16 Status post right foot surgery Family History Father Heart disease Hypertension Arthritis Dementia Mother Afib Lung cancer History of aortic valve repair History of hip replacement times 2 Sister History of hip replacement Brother Hypertension Social History Smoking Status: Never smoker Tobacco Type: Cigarettes Age Started Using Tobacco: 15; Age Quit Using Tobacco: 60; packs per day: 0.50; Second Hand Exposure: No; Do You Dip or Chew Tobacco: No; Tobacco Cessation Education Requested by Patient: No Hx Alcohol Use: No Hx Substance Use: No Preferred Language: Cymraes Communication Ability: Effective Visual Impairment: Limited Hearing Ability: Normal Flower Grower Required: No Beliefs That Will Affect Care: None marital status: Current Living Situation: Spouse current occupational status: retired How many Children do You have: 1 Other Information That Helps Us Care for You: No Feels Safe at Home: No Is there a partner from a previous relationship who is making you feel unsafe now?: No Any Concerns about Your Family Situation: No Would You Like to Speak to Someone About Your Situation: No Safety Concerns: Feels Safe At This Time Childhood Exposure to Second-Hand Smoke: Yes Diet: regular caffeine: Yes Dental Care, Regularly: Yes Physical Activity Frequency: Does not Exercise Seatbelt Use: always Sunscreen Use: No Do you think of yourself as: straight/heterosexual Assistive Devices: Glasses Assistive Devices Comment: Has glasses on Physical Exam Constitutional: WD/WN, vitals as above + obese and cooperative; no acute distress, not ill appearing and + uncomfortable Looks Slightly uncomfortable due to NG tube Respiratory: normal respiratory effort, lungs clear to auscultation Cardiovascular: RRR, no murmur, no edema Gastrointestinal (Abdomen): Inspection/Auscultation: abdomen normal to inspection, + abdominal surgical scar (Laparotomy scar and right lower quadrant scar) and + hypoactive bowel sounds; abdomen not distended and + abnormal bowel sounds Percussion/Palpation: + abdomen tender (Very mild tenderness in the right lower quadrant ileostomy scar on deep pal) and abdomen soft; no guarding, abdomen not rigid and abdomen not firm Skin: no rashes, warm and dry Psychiatric: A+Ox3, euthymic affect Results & Data Vital Signs (Past 12 Hours) Vital Signs Temp Pulse Pulse Resp BP BP Pulse Ox 12/26/22 13:30 88 16 94 12/26/22 13:30 167/98 H 12/26/22 13:00 86 16 93 12/26/22 13:00 174/99 H 12/26/22 12:42 168/105 H 12/26/22 12:42 88 19 96 12/26/22 12:30 95 12/26/22 12:00 88 13 96 12/26/22 12:00 167/114 H 12/26/22 13:26 92 H 20 174/99 H 93 12/26/22 12:49 92 H 12/26/22 11:30 87 17 99 12/26/22 11:30 161/99 H 12/26/22 11:00 85 17 99 12/26/22 11:00 158/106 H 12/26/22 10:30 87 14 97 12/26/22 10:30 150/101 H 12/26/22 10:14 91 H 21 96 12/26/22 10:14 173/97 H 12/26/22 09:30 87 15 94 12/26/22 09:30 156/95 H 12/26/22 09:00 93 H 15 94 12/26/22 09:00 176/107 H 12/26/22 08:30 90 17 95 12/26/22 08:30 184/108 H 12/26/22 08:22 91 H 23 94 12/26/22 08:48 88 12/26/22 08:26 91 H 20 95 12/26/22 08:03 37.1 C 94 H 20 160/132 H 98 O2 Del Method 12/26/22 13:30 12/26/22 13:30 12/26/22 13:00 12/26/22 13:00 12/26/22 12:42 12/26/22 12:42 12/26/22 12:30 12/26/22 12:00 12/26/22 12:00 12/26/22 13:26 Room Air 12/26/22 12:49 12/26/22 11:30 12/26/22 11:30 12/26/22 11:00 12/26/22 11:00 12/26/22 10:30 12/26/22 10:30 12/26/22 10:14 12/26/22 10:14 12/26/22 09:30 12/26/22 09:30 12/26/22 09:00 12/26/22 09:00 12/26/22 08:30 12/26/22 08:30 12/26/22 08:22 12/26/22 08:48 12/26/22 08:26 Room Air 12/26/22 08:03 Room Air Diagnostic Findings CT OF THE ABDOMEN AND PELVIS WITH CONTRAST CLINICAL HISTORY: Vomiting. COMPARISON STUDY: CT of the abdomen and pelvis November 25, 2015, MR enterography December 09, 2015. TECHNIQUE: Following IV administration of 94 mL of Optiray, axial images of the abdomen and pelvis were obtained from the lung bases to the proximal femurs. Images were reviewed in the axial, sagittal, and coronal planes. IV contrast was administered without complication. Automated exposure control was utilized for the study. A dose lowering technique was utilized adhering to the principles of ALARA. CT DOSE: 1407.42 mGy.cm FINDINGS: Lung bases are unremarkable. No pneumatosis, free air or portal venous gas is present. There are gallstones within the gallbladder. There is no evidence for acute cholecystitis. Liver, spleen, adrenal glands and right kidney are normal. There is moderate left renal atrophy. No hydronephrosis. Major vasculature is patent. The majority of the small bowel is moderately dilated and fluid-filled. Small bowel feces sign is noted with transition point within the right lower quadrant, within the ileum. This is shown on image 260 of 321. The transition site is at or just distal to the small bowel anastomosis. Distal small bowel is decompressed. The appendix is normal. There is a small amount of associated ascites within the abdomen and pelvis. There is infiltration within the pelvis. A small amount of interloop fluid is also noted. No lymphadenopathy is present. IMPRESSION: Findings consistent with a moderate grade partial small bowel obstruction with transition point at or just distal to an ileal anastomosis. Small amount of associated ascites and mesenteric infiltration. No pneumatosis, free air or portal venous gas.
--- NOTE | 2022-12-26 17:28 | Emergency Department Note ---
History of Present Illness General Chief complaint: Vomiting Stated complaint: VOMITING, LOWER R ABDOMINAL PAIN Time Seen by Provider: 12/26/22 08:33 History of Present Illness Provider Complaint: + nausea, + vomiting and + abdominal pain Onset (ago): day(s) 1 Description of Vomiting: no bilious, no blood-streaked, no bloody or no coffee grounds Description of Diarrhea: + none Associated Abdominal Pain: Yes Location of pain: + diffuse Severity: moderate Maximum Pain Intensity: 7 Current Pain Intensity: 7 Quality: + stabbing and + sharp Pain Consistency: + intermittent Relieved By: + none Exacerbated By: + eating and + vomiting Context: + history of abdominal surgery (History of colectomy secondary to diverticular disease ileostomy reversal); no foreign travel, no recent antibiot ic use, no alcohol abuse, no trauma, no NSAID use, no caffeine, no smoking or no marijuana use Associated symptoms: no myalgias, no diaphoresis, no fever/chills, no headaches, no loss of appetite, no rash, no dysuria, no shortness of breath, no syncope, no fecal incontinence or no altered mental status Home Medications Medication Instructions Recorded Confirmed Type duloxetine 60 mg capsule,delayed 60 mg PO QDL 11/30/20 12/26/22 History release gabapentin 300 mg capsule 300 mg PO TID #270 caps 03/09/22 12/26/22 Rx sulindac 150 mg tablet 150 mg PO BID 04/07/22 12/26/22 History albuterol sulfate 90 mcg/actuation 2 puff inhalation Q6H PRN 05/03/22 12/26/22 Rx aerosol inhaler shortness of breath or wheezing #6.7 grams albuterol sulfate 1.25 mg/3 mL 1.25 mg (3 mL) inhalation QID PRN 09/21/22 12/26/22 Rx solution for nebulization shortness of breath or wheezing #90 mL hydrocodone-homatropine 5 mg-1.5 5 ml PO Q6H PRN cough #200 mL 09/21/22 12/26/22 Rx mg/5 mL (5 mL) oral syrup (Hycodan) nebulizer accessories #1 ea 09/21/22 12/08/22 Rx nebulizers #1 ea 09/21/22 12/08/22 Rx cholecalciferol (vitamin D3) 125 125 mcg PO .Twice a week #30 caps 11/03/22 12/26/22 Rx mcg (5,000 unit) capsule carvedilol 6.25 mg tablet 6.25 mg PO BID #180 tabs 11/08/22 12/26/22 Rx hydroxyzine HCl 25 mg tablet 25 mg PO TID PRN itching #60 tabs 11/18/22 12/26/22 Rx [employer] Cognitive Support 1 dose PO QDL 12/23/22 12/26/22 History beta-glucan 250 mg capsule 250 mg PO QDL 12/23/22 12/26/22 History esomeprazole magnesium 20 mg 20 mg PO BID 12/23/22 12/26/22 History tablet,delayed release fluticasone 500 mcg-salmeterol 50 1 inh inhalation BID 12/23/22 12/26/22 History mcg/dose blistr powdr for inhalation (Advair Diskus) losartan 100 mg tablet 100 mg PO QAM 12/23/22 12/26/22 History methylprednisolone 4 mg tablet 4 mg PO QAM 12/23/22 12/26/22 History ascorbic acid (vitamin C) 500 mg 500 mg PO QDL 12/26/22 12/26/22 History tablet (Vitamin C) potassium gluconate 595 mg (99 mg) 595 mg PO QDL 12/26/22 12/26/22 History tablet vitamin B complex 1 tab PO QDL 12/26/22 12/26/22 History Allergies Allergy/AdvReac Type Severity Reaction Status Date / Time levofloxacin Allergy Unknown tendonitis Unverified 12/26/22 11:38 ELIDA Inhibitors Allergy Cough Verified 12/26/22 11:38 spironolactone Allergy Cramps Verified 12/26/22 11:38 Past Med/Surg History Medical History Barretts esophagus COPD (chronic obstructive pulmonary disease) Diverticular disease Dry eye Dry mouth Fibromyalgia GERD (gastroesophageal reflux disease) History of diverticulitis History of migraine HTN (hypertension) Lyme arthritis PONV (postoperative nausea and vomiting) Psoriatic arthritis Stage 3b chronic kidney disease 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 Thyroid goiter hx Surgical History H/O laparoscopy History of bladder surgery bladder sling History of bunionectomy History of colonoscopy History of esophagogastroduodenoscopy (EGD) History of partial thyroidectomy S/P closure of ileostomy 04/06/16 S/P hernia repair ventral hernia S/P hysterectomy S/P ileostomy 01/21/16 Status post right foot surgery Family History Father Heart disease Hypertension Arthritis Dementia Mother Afib Lung cancer History of aortic valve repair History of hip replacement times 2 Sister History of hip replacement Brother Hypertension Social History Smoking Status: Former smoker Tobacco Type: Cigarettes Age Started Using Tobacco: 15; Age Quit Using Tobacco: 60; packs per day: 0.50; Second Hand Exposure: No; Do You Dip or Chew Tobacco: No; Hx Alcohol Use: No Hx Substance Use: No Preferred Language: Palauan Communication Ability: Effective Visual Impairment: Limited Hearing Ability: Normal Mononitrotoluene Operator Required: No Beliefs That Will Affect Care: None marital status: Current Living Situation: Spouse current occupational status: retired How many Children do You have: 1 Feels Safe at Home: Yes Childhood Exposure to Second-Hand Smoke: Yes Diet: regular caffeine: Yes Dental Care, Regularly: Yes Physical Activity Frequency: Does not Exercise Seatbelt Use: always Sunscreen Use: No Do you think of yourself as: straight/heterosexual Assistive Devices: Glasses Physical Exam Vital Signs: Vital Signs - 24 hr 12/26/22 08:03 12/26/22 08:26 12/26/22 08:48 Temperature 37.1 C Temperature Source Oral Pulse Rate 94 H 91 H 88 Pulse Rate from Sp O2 Sensor Pulse Rhythm Regular Respiratory Rate 20 20 Blood Pressure 160/132 H Blood Pressure Jo-Ann n 141 Blood Pressure Pos ition Sitting Pulse Oximetry 98 95 Oxygen Delivery Me thod Room Air Room Air Sepsis Recent Feve r Within 48 Hours No Sepsis New/Unexpla ined Change in Men sharad Status No Sepsis Action Take n by Nursing No Action Required 12/26/22 08:22 12/26/22 08:30 12/26/22 08:30 Temperature Temperature Source Pulse Rate 91 H 90 Pulse Rate from Sp O2 Sensor 91 H 90 Pulse Rhythm Respiratory Rate 23 17 Blood Pressure 184/108 H Blood Pressure Jo-Ann n 133 Blood Pressure Pos ition Pulse Oximetry 94 95 Oxygen Delivery Me thod Sepsis Recent Feve r Within 48 Hours Sepsis New/Unexpla ined Change in Men sharad Status Sepsis Action Take n by Nursing 12/26/22 09:00 12/26/22 09:00 12/26/22 09:30 Temperature Temperature Source Pulse Rate 93 H Pulse Rate from Sp O2 Sensor 92 H Pulse Rhythm Respiratory Rate 15 Blood Pressure 176/107 H 156/95 H Blood Pressure Jo-Ann n 130 115 Blood Pressure Pos ition Pulse Oximetry 94 Oxygen Delivery Me thod Sepsis Recent Feve r Within 48 Hours Sepsis New/Unexpla ined Change in Men sharad Status Sepsis Action Take n by Nursing 12/26/22 09:30 12/26/22 10:14 12/26/22 10:14 Temperature Temperature Source Pulse Rate 87 91 H Pulse Rate from Sp O2 Sensor 87 88 Pulse Rhythm Respiratory Rate 15 21 Blood Pressure 173/97 H Blood Pressure Jo-Ann n 122 Blood Pressure Pos ition Pulse Oximetry 94 96 Oxygen Delivery Me thod Sepsis Recent Feve r Within 48 Hours Sepsis New/Unexpla ined Change in Men sharad Status Sepsis Action Take n by Nursing 12/26/22 10:30 12/26/22 10:30 12/26/22 11:00 Temperature Temperature Source Pulse Rate 87 Pulse Rate from Sp O2 Sensor 87 Pulse Rhythm Respiratory Rate 14 Blood Pressure 150/101 H 158/106 H Blood Pressure Jo-Ann n 117 123 Blood Pressure Pos ition Pulse Oximetry 97 Oxygen Delivery Me thod Sepsis Recent Feve r Within 48 Hours Sepsis New/Unexpla ined Change in Men sharad Status Sepsis Action Take n by Nursing 12/26/22 11:00 Temperature Temperature Source Pulse Rate 85 Pulse Rate from Sp O2 Sensor 89 Pulse Rhythm Respiratory Rate 17 Blood Pressure Blood Pressure Jo-Ann n Blood Pressure Pos ition Pulse Oximetry 99 Oxygen Delivery Me thod Sepsis Recent Feve r Within 48 Hours Sepsis New/Unexpla ined Change in Men sharad Status Sepsis Action Take n by Nursing Physical Exam: Physical Exam GENERAL: She is oriented to person, place, and time. She appears well-developed and well-nourished. She does not appear distressed. HENT: Exam performed. -Head: Normocephalic and atraumatic. -Right Ear: External ear normal. No mastoid erythema -Left Ear: External ear normal. No mastoid erythema -Mouth/Throat: The oropharynx is clear and moist. No trismus in the jaw. No dental abscesses or uvula swelling. No oropharyngeal exudate or tonsillar abscesses. EYES: Conjunctivae and EOM are normal.Right eye exhibits no discharge. Left eye exhibits no discharge. No scleral icterus. NECK: Normal range of motion. Neck supple. No JVD present. No tracheal deviation and normal range of motion present. CV: Normal rate, regular rhythm, normal heart sounds and intact distal pulses. There is no peripheral edema. Palpable radial pulses bue. PULM/CHEST: Effort normal and breath sounds normal. No respiratory distress. No stridor. She has no wheezes. She has no rales. -Chest Wall: She exhibits no tenderness. ABD: The abdomen is soft. Decreased bowel sounds. Diffuse pain on palpation of the abdomen. No guarding or rigidity. MUSC/SKEL: Normal range of motion. There is no peripheral edema, tenderness or deformity. NEURO: Motor and sensation grossly intact. SKIN: Skin is warm and dry. She is not diaphoretic. PSYCH: She has a normal mood and affect. Behavior is normal. Judgment and thought content normal. Course Course 832: The patient was evaluated in room A12. A complete history and physical exam was performed Cardiac monitoring: An order was placed for continuous cardiac monitoring. The monitor shows a rate of 80 with sins rhythm interpreted by me 1115: Vital signs stable. Labs within normal limits. Imaging shows bowel obstruction. Discussed case with Dr. Holm [facility] hospitalist who requests a surgical consult be placed also in his team will evaluate the patient for admission. Discussed with Mary Ellen VILLARREAL for Dr. Calvillo who will be down to evaluate the patient. Surgical consult placed. Administered Medications Sodium Chloride (Nss 1000ml) 1,000 mls @ 125 mls/hr IV .Q8H DON Stop: 01/25/23 10:29 Last Admin: 12/26/22 12:49 Dose: 125 mls/hr Documented By: RSL Discontinued Medications Sodium Chloride (Nss 1000ml) 1,000 mls @ 999 mls/hr IV .Q1H1M ONE Stop: 12/26/22 09:55 Last Infusion: 12/26/22 09:51 Dose: 0 mls/hr Documented By: Admin: 12/26/22 08:59 Dose: 999 mls/hr Documented By: NITHIN Ioversol (Optiray 320 100ml) 94 ml IV ONCE ONE Stop: 12/26/22 10:04 Last Admin: 12/26/22 10:04 Dose: 94 ml Documented By: LOGAN Ketorolac Tromethamine (Ketorolac Tromethamine 15 Mg/Ml Vial) 15 mg IV NOW STA Stop: 12/26/22 08:56 Last Admin: 12/26/22 09:00 Dose: 15 mg Documented By: NITHIN Ondansetron HCl (Ondansetron Inj 2 Mg/Ml 2 Ml Vial) Confirm Administered Dose 4 mg .ROUTE .STK-MED ONE Stop: 12/26/22 08:57 Last Admin: 12/26/22 08:59 Dose: Not Given Documented By: NITHIN Ondansetron HCl (Ondansetron Inj 2 Mg/Ml 2 Ml Vial) 4 mg IV NOW STA Stop: 12/26/22 08:56 Last Admin: 12/26/22 08:59 Dose: 4 mg Documented By: NITHIN Medical Decision Making Laboratory Data Attestation: I reviewed the patient's lab results. 12/26/22 08:24 12/26/22 08:24 Lab Results 12/26/22 12/26/22 12/26/22 Range/Units 08:24 08:24 10:12 WBC 11.41 H (4.8-10.8) K/ul RBC 4.80 (4.20-5.40) M/uL Hgb 14.3 (12.0-16.0) g/dl Hct 43.0 (37.0-47.0) % MCV 89.6 (80.0-100.0) fL MCH 29.8 (25.0-34.0) pg MCHC 33.3 (32.0-36.0) g/dL RDW Std Deviation 44.7 (36.4-46.3) fL RDW Coeff of Rohan 13.8 (11.5-14.5) % Plt Count 249 (130-400) K/uL MPV 10.7 (9.4-12.4) fL Immature Gran % (Auto) 0.4 % Neut % (Auto) 77.4 % Lymph % (Auto) 12.4 % Stone % (Auto) 7.9 % Eos % (Auto) 1.5 % Baso % (Auto) 0.4 % Neut # (Auto) 8.82 H (1.40-6.50) K/uL Lymph # (Auto) 1.42 (1.2-3.4) K/uL Stone # (Auto) 0.90 H (0.11-0.59) K/uL Eos # (Auto) 0.17 (0-0.50) K/uL Baso # (Auto) 0.05 (0-0.2) K/uL Immature Gran # (Auto) 0.05 (0.01-0.20) K/uL Sodium 144 (136-145) mmol/L Potassium 3.7 (3.5-5.1) mmol/L Chloride 106 (98-107) mmol/L Carbon Dioxide 30 (21-32) mmol/L Anion Gap 8 (3-11) BUN 21 (6-23) mg/dl Creatinine 0.98 (0.6-1.2) mg/dl Est Cr Clr Drug Dosing 62.7 ml/min Est GFR ( Amer) 69.2 ml/min Est GFR (Non-Af Amer) 59.7 ml/min BUN/Creatinine Ratio 21.4 H (10-20) Glucose 147 H (70-99(Fasting)) mg/dl Calcium 9.7 (8.6-10.3) mg/dl Total Bilirubin 0.8 (0.2-1.0) mg/dl AST 24 (13-39) U/L ALT 23 (7-52) U/L Alkaline Phosphatase 68 (34-104) U/L Total Protein 7.3 (6.0-8.3) gm/dl Albumin 3.8 (3.4-5.0) gm/dl Globulin 3.5 (2.5-4.0) gm/dl Albumin/Globulin Ratio 1.1 (0.9-2) Lipase 72 (11-82) U/L Urine Color Yellow Urine Appearance Clear (Clear) Urine pH 6.5 (4.5-7.5) Ur Specific Garfield 1.024 (1.000-1.030) Urine Protein Negative (Negative) Urine Glucose (UA) Negative (Negative) Urine Ketones Negative (Negative) Urine Blood Negative (Negative) Urine Nitrite Negative (Negative) Urine Bilirubin Negative (Negative) Urine Urobilinogen Negative (Negative) Ur Leukocyte Esterase Negative (Negative) SARS-CoV-2, RNA, NAAT (NEGATIVE) 12/26/22 Range/Units 10:37 WBC (4.8-10.8) K/ul RBC (4.20-5.40) M/uL Hgb (12.0-16.0) g/dl Hct (37.0-47.0) % MCV (80.0-100.0) fL MCH (25.0-34.0) pg MCHC (32.0-36.0) g/dL RDW Std Deviation (36.4-46.3) fL RDW Coeff of Rohan (11.5-14.5) % Plt Count (130-400) K/uL MPV (9.4-12.4) fL Immature Gran % (Auto) % Neut % (Auto) % Lymph % (Auto) % Stone % (Auto) % Eos % (Auto) % Baso % (Auto) % Neut # (Auto) (1.40-6.50) K/uL Lymph # (Auto) (1.2-3.4) K/uL Stone # (Auto) (0.11-0.59) K/uL Eos # (Auto) (0-0.50) K/uL Baso # (Auto) (0-0.2) K/uL Immature Gran # (Auto) (0.01-0.20) K/uL Sodium (136-145) mmol/L Potassium (3.5-5.1) mmol/L Chloride (98-107) mmol/L Carbon Dioxide (21-32) mmol/L Anion Gap (3-11) BUN (6-23) mg/dl Creatinine (0.6-1.2) mg/dl Est Cr Clr Drug Dosing ml/min Est GFR ( Amer) ml/min Est GFR (Non-Af Amer) ml/min BUN/Creatinine Ratio (10-20) Glucose (70-99(Fasting)) mg/dl Calcium (8.6-10.3) mg/dl Total Bilirubin (0.2-1.0) mg/dl AST (13-39) U/L ALT (7-52) U/L Alkaline Phosphatase (34-104) U/L Total Protein (6.0-8.3) gm/dl Albumin (3.4-5.0) gm/dl Globulin (2.5-4.0) gm/dl Albumin/Globulin Ratio (0.9-2) Lipase (11-82) U/L Urine Color Urine Appearance (Clear) Urine pH (4.5-7.5) Ur Specific Garfield (1.000-1.030) Urine Protein (Negative) Urine Glucose (UA) (Negative) Urine Ketones (Negative) Urine Blood (Negative) Urine Nitrite (Negative) Urine Bilirubin (Negative) Urine Urobilinogen (Negative) Ur Leukocyte Esterase (Negative) SARS-CoV-2, RNA, NAAT NEGATIVE (NEGATIVE) Imaging Data Radiologist's Impression: Abdomen/Pelvis CT 12/26/22 08:56 CT OF THE ABDOMEN AND PELVIS WITH CONTRAST CLINICAL HISTORY: Vomiting. COMPARISON STUDY: CT of the abdomen and pelvis November 25, 2015, MR enterography December 09, 2015. TECHNIQUE: Following IV administration of 94 mL of Optiray, axial images of the abdomen and pelvis were obtained from the lung bases to the proximal femurs. Images were reviewed in the axial, sagittal, and coronal planes. IV contrast was administered without complication. Automated exposure control was utilized for the study. A dose lowering technique was utilized adhering to the principles of ALARA. CT DOSE: 1407.42 mGy.cm FINDINGS: Lung bases are unremarkable. No pneumatosis, free air or portal venous gas is present. There are gallstones within the gallbladder. There is no evidence for acute cholecystitis. Liver, spleen, adrenal glands and right kidney are normal. There is moderate left renal atrophy. No hydronephrosis. Major vasculature is patent. The majority of the small bowel is moderately dilated and fluid-filled. Small bowel feces sign is noted with transition point within the right lower quadrant, within the ileum. This is shown on image 260 of 321. The transition site is at or just distal to the small bowel anastomosis. Distal small bowel is decompressed. The appendix is normal. There is a small amount of associated ascites within the abdomen and pelvis. There is infiltration within the pelvis. A small amount of interloop fluid is also noted. No lymphadenopathy is present. IMPRESSION: Findings consistent with a moderate grade partial small bowel obstruction with transition point at or just distal to an ileal anastomosis. Small amount of associated ascites and mesenteric infiltration. No pneumatosis, free air or portal venous gas. ACT 112: Negative or not required by law. Electronically signed by: Barrie Donahue M.D. 12/26/2022 10:21 AM KUB X-Ray 12/26/22 11:19 KUB HISTORY: evaluation of NGT placement COMPARISON: Chest x-ray 10/24/2022. Abdomen and pelvis CT 12/26/2022.. FINDINGS: A few dilated loops of small bowel within the abdomen consistent with the patient's known small bowel obstruction. No renal calculi. No ureteral calculi. No pneumoperitoneum or pneumatosis. Nasogastric tube terminates in the stomach with the tip at the fundus of the stomach. Contrast within the urinary system due to the recent CT examination. IMPRESSION: 1. Nasogastric tube terminates in the stomach. 2. Persistent small bowel obstruction pattern. ACT 112: Negative or not required by law. Electronically signed by: Manuel Rios M.D. 12/26/2022 12:03 PM [facility] Narrative 0833: The patient was evaluated in room A12. A complete history and physical exam was performed Cardiac monitoring: An order was placed for continuous cardiac monitoring. The monitor shows a rate of 80 with sins rhythm interpreted by me 1115: Vital signs stable. Labs within normal limits. Imaging shows bowel obstruction. Discussed case with [facility] who requests a surgical consult be placed also in his team will evaluate the patient for admission. Discussed with Mary Ellen VILLARREAL for Dr. Calvillo who will be down to e valuate the patient. Surgical consult placed. Impression & Plan Small bowel obstruction Discharge Plan Visit Data Chief Complaint: Vomiting Stated Complaint: VOMITING, LOWER R ABDOMINAL PAIN ED Provider: Kwesi Bates Discharge Problem: Small bowel obstruction Patient Disposition: Admitted As Inpatient Discharge Instructions Interventions: ED Discharge Assessment Last Done: 12/26/22 15:57
[2022-12-26] MEDS: HEPARIN SOD 5,000 UNIT/0.5 ML VIAL SQ SCH ×2 (17:34→20:22)
[2022-12-27] MEDS: ACETAMINOPHEN 1,000 MG/100 ML VIAL IV PRN (02:01)
[2022-12-27] MEDS: SODIUM CHLORIDE 0.9% 1000ML 1,000 ML IV SCH ×2 (04:56→14:00)
[2022-12-27] MEDS: HEPARIN SOD 5,000 UNIT/0.5 ML VIAL SQ SCH ×3 (05:53→22:40)
[2022-12-27] MEDS ORDERED: KETOROLAC TROMETHAMINE 15 MG/ML VIAL IV ONE (06:04)
[2022-12-27] MEDS: hydrALAZINE HCL 20 MG/ML VIAL IV PRN ×2 (07:29→22:56)
[2022-12-27] MEDS: HYDROCORTISONE SOD 25 MG in SYRINGE 0 ML IV SCH (07:30)
--- NOTE | 2022-12-27 07:54 | Hospitalist Progress Note ---
Date of Service December 27, 2022 Assessment & Plan (1) Small bowel obstruction: Plan: Acute partial small bowel obstruction - likely related to adhesions with previous history of mass removal, resection, and re-anastamosis. - NGT removed this morning - Appreciate General Surgery input - IVF; NS @ 110ml/hr - Pain control- IV tylenol, Morphine if needed - KUB with Mildly distended gas-filled loops of small bowel. The degree of distention has significantly improved from yesterday. - Plan to advance diet as tolerated - Restart home mediations when tolerating PO (2) HTN (hypertension): Plan: Hold oral medications- PRN available if SBP >180 Plan to restart once tolerating PO (3) Psoriatic arthritis: Plan: Continue methylpred 4mg IV- convert back to PO when able - stress dose if indicated - Hold other DMARDs (4) COPD (chronic obstructive pulmonary disease): Plan: Well controlled- rare use of her ANDRES at home - Continue Advair - was previously on Trelegy, but was cost prohibitive (5) Mixed hyperlipidemia: Plan: Hold Statin while NPO (6) Stage 3b chronic kidney disease: Plan: Avoid further nephrotoxic medications as able - IVF - Daily BMP Admission and Anticipated Discharge Date Admission Date: December 26, 2022 Supervising Physician Co-Signing Physician Notes I personally examined the patient and verified all zelaya points of history and exam, discussed case, and agree with decision making with Dr Nelosn Feeling better. Tolerating liquidwateronly problem is she does not like the taste of it. But no nausea or pain afterwards. Vitals noted, in general she is awake and alert pleasant no distress. HEENT normocephalic atraumatic mucous membranes moist. Breathing unlabored no accessory muscle use good effort. Skin shows no rashes no pallor or icterus. Abdomen is soft nondistended nontender no guarding rebound or rigidity no masses organomegaly. Small bowel obstructionalmost certainly adhesionalfortunately showing good i mprovement. Explained pathophysiology and general course of treatment for small bowel obstructionpatient expressed understanding. Advance to clear liquids, continue to followbut she is showing nice progress. Subjective Eliana is feeling better this morning. Improvement in abdominal pain. No further episodes of emesis. Last BM in ED yesterday. Is passing gas. Review of Systems Review of Systems: As per above Physical Exam Physical Exam: Constitutional: well-appearing, no acute distress HEENT: NCAT, no conjunctival injection, NG tube in place CV: regular rhythm, no murmur appreciated, extremities well-perfused Resp: CTABL, no wheezes/rales/rhonchi appreciated, no increased work of breathing GI: soft, nondistended, nontender, BS normoactive MSK: no gross deformities appreciated Skin: warm, dry, no rash appreciated Neuro: alert, oriented, no focal neurologic deficit appreciated Results & Data Results & Data Vital Signs (Past 12 Hours) Vital Signs Temp Pulse Resp BP Pulse Ox O2 Del Method 12/27/22 07:23 36.5 C 75 16 177/103 H 95 Room Air 12/26/22 23:07 36.6 C 87 18 140/66 97 Room Air 12/26/22 20:25 Room Air Resident Activity Tracking Resident Involvement: Resident Care Provided Care Provided: Adult Hospital Medicine
[2022-12-27 08:25] LABS: Basophils # (auto) 0.04 K/uL (0-0.2); Basophils % (auto) 0.6 %; Eosinophils # (auto) 0.35 K/uL (0-0.50); Eosinophils % (auto) 4.9 %; Hematocrit (blood only) 38.9 % (37.0-47.0); Hemoglobin 12.5 g/dl (12.0-16.0); Immature Granulocytes # (auto) 0.02 K/uL (0.01-0.20); Immature Granulocytes % (auto) 0.3 %; Lymphocytes % (auto) 29.5 %; Mean Corpuscular Hgb Conc 32.1 g/dL (32.0-36.0); Mean Corpuscular Volume 93.3 fL (80.0-100.0); Mean Platelet Volume 10.7 fL (9.4-12.4); Monocytes # (auto) 0.51 K/uL (0.11-0.59); Monocytes % (auto) 7.2 %; Neutrophils # (auto) 4.11 K/uL (1.40-6.50); Neutrophils % (auto) 57.5 %; Platelet Count 222 K/uL (130-400); RDW Standard Deviation 47.9 fL (36.4-46.3); Red Blood Count 4.17 M/uL (4.20-5.40); White Blood Count 7.13 K/ul (4.8-10.8)
[2022-12-27 08:42] LABS: BUN Creatinine Ratio 14.9 (10-20); Calcium 8.3 mg/dl (8.6-10.3); Creatinine Clr Calc Pharmacy 70.7 ml/min; Est GFR (African American) 79.9 ml/min; Est GFR (Non-African American) 68.9 ml/min; Potassium 3.5 mmol/L (3.5-5.1)
[2022-12-27] MEDS ORDERED: methylPREDNISolone 4 MG in SYRINGE 0 ML IV SCH (09:00)
--- NOTE | 2022-12-27 09:45 | XRay Report ---
KUB CLINICAL HISTORY: Enteric tube placement. FINDINGS: An AP supine abdominal radiograph is compared to abdominal radiographs and CT dated 3. An enteric tube has been placed. The tip projects below the diaphragm over the proximal to mid sto mach. Mildly distended and gas-filled loops of small bowel likely corresponds to the obstruction seen on yesterday's CT scan. Gas is seen in the colon. No evidence of intraperitoneal free air is identif ied on this supine image. There are no abnormal abdominal calcifications. The bony structures appear intact. IMPRESSION: 1. An enteric tube has been placed as above. 2. Mildly distended gas-filled loops of small bowel likely corresponds to the bowel obstruction seen on yesterday's abdominal CT. The degree of distention has significantly improved from yesterday. Electronically signed by: Dylan Keen M.D. 12/27/2022 9:44 AM
--- NOTE | 2022-12-27 11:12 | Surgery Progress Note ---
Date of Service December 27, 2022 Assessment & Plan (1) Small bowel obstruction: Plan: Hospital day #2 with small bowel obstruction Doing well. Passing flatus regularly. We will remove the NG tube Sips and chips Encourage ambulation We will continue to follow May advance to clears later on today Admission and Anticipated Discharge Date Admission Date: December 26, 2022 Subjective Doing better this morning. She did have 2 bowel movements last night. She has continued to pass flatus throughout the morning. She denies nausea or vomiting or bloating. Her pain is improving. Physical Exam Physical Exam: NAD, A&O x3 AFVSS Abdomen: Soft, mild distention, nontender Results & Data Vital Signs (Past 12 Hours) Vital Signs Temp Pulse Resp BP Pulse Ox O2 Del Method 12/27/22 09:40 150/86 H 12/27/22 07:23 36.5 C 75 16 177/103 H 95 Room Air Laboratory Results 12/27/22 12/27/22 12/27/22 Range/Units 08:12 08:12 07:12 WBC 7.13 (4.8-10.8) K/ul RBC 4.17 L (4.20-5.40) M/uL Hgb 12.5 (12.0-16.0) g/dl Hct 38.9 (37.0-47.0) % MCV 93.3 (80.0-100.0) fL MCH 30.0 (25.0-34.0) pg MCHC 32.1 (32.0-36.0) g/dL RDW Std Deviation 47.9 H (36.4-46.3) fL RDW Coeff of Rohan 14.0 (11.5-14.5) % Plt Count 222 (130-400) K/uL MPV 10.7 (9.4-12.4) fL Immature Gran % (Auto) 0.3 % Neut % (Auto) 57.5 % Lymph % (Auto) 29.5 % [place] % (Auto) 7.2 % Eos % (Auto) 4.9 % Baso % (Auto) 0.6 % Neut # (Auto) 4.11 (1.40-6.50) K/uL Lymph # (Auto) 2.10 (1.2-3.4) K/uL [place] # (Auto) 0.51 (0.11-0.59) K/uL Eos # (Auto) 0.35 (0-0.50) K/uL Baso # (Auto) 0.04 (0-0.2) K/uL Immature Gran # (Auto) 0.02 (0.01-0.20) K/uL Sodium 143 (136-145) mmol/L Potassium 3.5 (3.5-5.1) mmol/L Chloride 109 H (98-107) mmol/L Carbon Dioxide 30 (21-32) mmol/L Anion Gap 4 (3-11) BUN 13 (6-23) mg/dl Creatinine 0.87 (0.6-1.2) mg/dl Est Cr Clr Drug Dosing 70.7 ml/min Est GFR ( Amer) 79.9 ml/min Est GFR (Non-Af Amer) 68.9 ml/min BUN/Creatinine Ratio 14.9 (10-20) Glucose 88 (70-99(Fasting)) mg/dl POC Glucose 83 (70-99) mg/dl Calcium 8.3 L (8.6-10.3) mg/dl 12/27/22 Range/Units 00:01 WBC (4.8-10.8) K/ul RBC (4.20-5.40) M/uL Hgb (12.0-16.0) g/dl Hct (37.0-47.0) % MCV (80.0-100.0) fL MCH (25.0-34.0) pg MCHC (32.0-36.0) g/dL RDW Std Deviation (36.4-46.3) fL RDW Coeff of Rohan (11.5-14.5) % Plt Count (130-400) K/uL MPV (9.4-12.4) fL Immature Gran % (Auto) % Neut % (Auto) % Lymph % (Auto) % [place] % (Auto) % Eos % (Auto) % Baso % (Auto) % Neut # (Auto) (1.40-6.50) K/uL Lymph # (Auto) (1.2-3.4) K/uL [place] # (Auto) (0.11-0.59) K/uL Eos # (Auto) (0-0.50) K/uL Baso # (Auto) (0-0.2) K/uL Immature Gran # (Auto) (0.01-0.20) K/uL Sodium (136-145) mmol/L Potassium (3.5-5.1) mmol/L Chloride (98-107) mmol/L Carbon Dioxide (21-32) mmol/L Anion Gap (3-11) BUN (6-23) mg/dl Creatinine (0.6-1.2) mg/dl Est Cr Clr Drug Dosing ml/min Est GFR ( Amer) ml/min Est GFR (Non-Af Amer) ml/min BUN/Creatinine Ratio (10-20) Glucose (70-99(Fasting)) mg/dl POC Glucose 74 (70-99) mg/dl Calcium (8.6-10.3) mg/dl
--- NOTE | 2022-12-27 13:03 | Billing Data ---
Date of Service December 27, 2022 Coding Level of Care Code 11272 SUB INP/OBS CARE
[2022-12-28] MEDS: ACETAMINOPHEN 1,000 MG/100 ML VIAL IV PRN (04:00)
[2022-12-28] MEDS ORDERED: SODIUM CHLORIDE 0.65% NA SOLN 45 ML (OCEAN) PRN (04:19)
[2022-12-28] MEDS ORDERED: KETOROLAC TROMETHAMINE 15 MG/ML VIAL IV PRN (04:20)
[2022-12-28] MEDS: HEPARIN SOD 5,000 UNIT/0.5 ML VIAL SQ SCH ×2 (05:10→13:56)
[2022-12-28 06:41] LABS: Basophils # (auto) 0.04 K/uL (0-0.2); Basophils % (auto) 0.5 %; Eosinophils # (auto) 0.35 K/uL (0-0.50); Eosinophils % (auto) 4.7 %; Hematocrit (blood only) 35.1 % (37.0-47.0); Hemoglobin 11.4 g/dl (12.0-16.0); Immature Granulocytes # (auto) 0.02 K/uL (0.01-0.20); Immature Granulocytes % (auto) 0.3 %; Mean Corpuscular Hemoglobin 29.4 pg (25.0-34.0); Mean Corpuscular Hgb Conc 32.5 g/dL (32.0-36.0); Mean Corpuscular Volume 90.5 fL (80.0-100.0); Monocytes # (auto) 0.74 K/uL (0.11-0.59); Neutrophils # (auto) 4.26 K/uL (1.40-6.50); Neutrophils % (auto) 57.5 %; Platelet Count 194 K/uL (130-400); RDW Coefficient of Variation 13.8 % (11.5-14.5); RDW Standard Deviation 45.1 fL (36.4-46.3); Red Blood Count 3.88 M/uL (4.20-5.40); White Blood Count 7.41 K/ul (4.8-10.8)
[2022-12-28 07:07] LABS: BUN Creatinine Ratio 10.1 (10-20); Calcium 8.2 mg/dl (8.6-10.3); Creatinine Clr Calc Pharmacy 69.1 ml/min; Est GFR (African American) 77.7 ml/min; Est GFR (Non-African American) 67.1 ml/min; Magnesium 1.4 mg/dl (1.7-2.4)
[2022-12-28] MEDS: HYDROCORTISONE SOD 25 MG in SYRINGE 0 ML IV SCH (07:22)
[2022-12-28] MEDS: hydrALAZINE HCL 20 MG/ML VIAL IV PRN (07:22)
[2022-12-28] MEDS ORDERED: POTASSIUM CHLORIDE CRTAB 20 MEQ TABCR PO STA (07:42)
[2022-12-28] MEDS: GABAPENTIN 300 MG CAP PO SCH ×2 (08:17→14:24)
[2022-12-28] MEDS ORDERED: LOSARTAN POTASSIUM 50 MG TAB PO SCH (09:00)
[2022-12-28] MEDS ORDERED: carvediloL 6.25 MG TAB PO SCH (09:00)
--- NOTE | 2022-12-28 10:06 | Surgery Progress Note ---
Date of Service December 28, 2022 Assessment & Plan (1) Small bowel obstruction: Plan: Hospital day #3 with small bowel obstruction Doing well. + bowel movement and flatus tolerating clears, advancing diet okay from surgical standpoint for discharge recommend low fiber diet for 1-[address] robles who agrees with above. Admission and Anticipated Discharge Date Admission Date: December 26, 2022 Subjective feeling much better no n,v tolerating clear liquids, fulls ordered for lunch + flatus and bowel movement Mild tenderness in lower abdomen Physical Exam Constitutional: WD/WN, vitals as above + obese, cooperative and comfortable; no acute distress and not ill appearing Gastrointestinal (Abdomen): Inspection/Auscultation: abdomen normal to inspection; abdomen not distended Percussion/Palpation: + abdomen tender (mild in the RLQ on deep palpation) and abdomen soft; no guarding and abdomen not rigid Skin: no rashes, warm and dry Psychiatric: A+Ox3, euthymic affect Results & Data Vital Signs (Past 12 Hours) Vital Signs Temp Pulse Resp BP Pulse Ox O2 Del Method 12/28/22 08:19 86 165/84 H 12/28/22 07:08 36.9 C 86 16 193/99 H 96 Room Air 12/28/22 04:05 170/93 H 12/28/22 00:55 166/90 H 12/27/22 22:52 182/102 H 12/27/22 22:46 36.8 C 79 17 173/88 H 97 Room Air Laboratory Results 12/28/22 12/28/22 12/27/22 Range/Units 05:54 05:54 12:05 WBC 7.41 (4.8-10.8) K/ul RBC 3.88 L (4.20-5.40) M/uL Hgb 11.4 L (12.0-16.0) g/dl Hct 35.1 L (37.0-47.0) % MCV 90.5 (80.0-100.0) fL MCH 29.4 (25.0-34.0) pg MCHC 32.5 (32.0-36.0) g/dL RDW Std Deviation 45.1 (36.4-46.3) fL RDW Coeff of Rohan 13.8 (11.5-14.5) % Plt Count 194 (130-400) K/uL MPV 11.0 (9.4-12.4) fL Immature Gran % (Auto) 0.3 % Neut % (Auto) 57.5 % Lymph % (Auto) 27.0 % [place] % (Auto) 10.0 % Eos % (Auto) 4.7 % Baso % (Auto) 0.5 % Neut # (Auto) 4.26 (1.40-6.50) K/uL Lymph # (Auto) 2.00 (1.2-3.4) K/uL [place] # (Auto) 0.74 H (0.11-0.59) K/uL Eos # (Auto) 0.35 (0-0.50) K/uL Baso # (Auto) 0.04 (0-0.2) K/uL Immature Gran # (Auto) 0.02 (0.01-0.20) K/uL Sodium 142 (136-145) mmol/L Potassium 3.0 L (3.5-5.1) mmol/L Chloride 108 H (98-107) mmol/L Carbon Dioxide 28 (21-32) mmol/L Anion Gap 6 (3-11) BUN 9 (6-23) mg/dl Creatinine 0.89 (0.6-1.2) mg/dl Est Cr Clr Drug Dosing 69.1 ml/min Est GFR ( Amer) 77.7 ml/min Est GFR (Non-Af Amer) 67.1 ml/min BUN/Creatinine Ratio 10.1 (10-20) Glucose 92 (70-99(Fasting)) mg/dl POC Glucose 87 (70-99) mg/dl Calcium 8.2 L (8.6-10.3) mg/dl Magnesium 1.4 L (1.7-2.4) mg/dl
[2022-12-28] MEDS ORDERED: DULoxetine HCL 60 MG CAP PO SCH (11:30)
--- NOTE | 2022-12-28 14:41 | Discharge Summary ---
Date of Service December 28, 2022 Admission HPI Per Admitting Provider 67 YOF with medical history of: COPD(quit smoking 2016), partial thyroidectomy, RA, Bowel resection with re-anastomosis, hysterectomy, diverticulitis, HTN, cellulitis (just finished course of doxycycline). Patient presents to the EMD for about 18 hours of abdominal pain and nausea/vomiting. The patient reports that yesterday following lunch- at ~1400- she had an onset of lower quadrant abdominal pain that was sharp and stabbing in nature. This progressed to sharp pain throughout her abdomen and was associated with multiple episodes of vomiting- Patient reports 25 times throughout the night and 3-5 times this m orning. The vomitus is brown and foul smelling per the patient. Following the vomiting she would note that she would have chills, but denies persistent fevers at home. In the EMD the patient underwent CT of her abdomen and pelvis, received Zofran for nausea, Toradol for pain, and 0.9% normal saline infusion. The hospitalist service was consulted for admission- requested surgical consultation and evaluation. Patient will be admitted for bowel obstruction, will place NGT secondary to her persistent vomiting and "moderate grade partial SBO" noted on imaging. Patient will be kept NPO. CODE: FULL COVID: NEGATIVE Principal Diagnosis small bowel obstruction Discharge Exam Constitutional: well-appearing, no acute distress HEENT: NCAT, no conjunctival injection CV: regular rhythm, no murmur appreciated, extremities well-perfused Resp: CTABL, no wheezes/rales/rhonchi appreciated, no increased work of breathing GI: soft, nondistended, nontender, BS normoactive MSK: no gross deformities appreciated Skin: warm, dry, no rash appreciated Neuro: alert, oriented, no focal neurologic deficit appreciated Discharge Data Allergies Allergy/AdvReac Type Severity Reaction Status Date / Time levofloxacin Allergy Unknown tendonitis Unverified 12/26/22 11:38 ELIDA Inhibitors Allergy Cough Verified 12/26/22 11:38 spironolactone Allergy Cramps Verified 12/26/22 11:38 Consultations 12/26/22 10:27 ED Decision to Admit Stat 12/26/22 11:12 Consult General Surgery Stat Ordered Studies 12/26/22 08:56 CT abd pelvis IV con only Stat Laboratory Results WBC 7.41 K/ul (4.8-10.8) 12/28/22 05:54 RBC 3.88 M/uL (4.20-5.40) L 12/28/22 05:54 Hgb 11.4 g/dl (12.0-16.0) L 12/28/22 05:54 Hct 35.1 % (37.0-47.0) L 12/28/22 05:54 MCV 90.5 fL (80.0-100.0) 12/28/22 05:54 MCH 29.4 pg (25.0-34.0) 12/28/22 05:54 MCHC 32.5 g/dL (32.0-36.0) 12/28/22 05:54 RDW Std Deviation 45.1 fL (36.4-46.3) 12/28/22 05:54 RDW Coeff of Rohan 13.8 % (11.5-14.5) 12/28/22 05:54 Plt Count 194 K/uL (130-400) 12/28/22 05:54 MPV 11.0 fL (9.4-12.4) 12/28/22 05:54 Immature Gran % (Auto) 0.3 % 12/28/22 05:54 Neut % (Auto) 57.5 % 12/28/22 05:54 Lymph % (Auto) 27.0 % 12/28/22 05:54 [place] % (Auto) 10.0 % 12/28/22 05:54 Eos % (Auto) 4.7 % 12/28/22 05:54 Baso % (Auto) 0.5 % 12/28/22 05:54 Neut # (Auto) 4.26 K/uL (1.40-6.50) 12/28/22 05:54 Lymph # (Auto) 2.00 K/uL (1.2-3.4) 12/28/22 05:54 [place] # (Auto) 0.74 K/uL (0.11-0.59) H 12/28/22 05:54 Eos # (Auto) 0.35 K/uL (0-0.50) 12/28/22 05:54 Baso # (Auto) 0.04 K/uL (0-0.2) 12/28/22 05:54 Immature Gran # (Auto) 0.02 K/uL (0.01-0.20) 12/28/22 05:54 Sodium 142 mmol/L (136-145) 12/28/22 05:54 Potassium 3.0 mmol/L (3.5-5.1) L 12/28/22 05:54 Chloride 108 mmol/L (98-107) H 12/28/22 05:54 Carbon Dioxide 28 mmol/L (21-32) 12/28/22 05:54 Anion Gap 6 (3-11) 12/28/22 05:54 BUN 9 mg/dl (6-23) 12/28/22 05:54 Creatinine 0.89 mg/dl (0.6-1.2) 12/28/22 05:54 Est Cr Clr Drug Dosing 69.1 ml/min 12/28/22 05:54 Est GFR ( Amer) 77.7 ml/min 12/28/22 05:54 Est GFR (Non-Af Amer) 67.1 ml/min 12/28/22 05:54 BUN/Creatinine Ratio 10.1 (10-20) 12/28/22 05:54 Glucose 92 mg/dl (70-99(Fasting)) 12/28/22 05:54 POC Glucose 87 mg/dl (70-99) 12/27/22 12:05 Calcium 8.2 mg/dl (8.6-10.3) L 12/28/22 05:54 Magnesium 1.4 mg/dl (1.7-2.4) L 12/28/22 05:54 Total Bilirubin 0.8 mg/dl (0.2-1.0) 12/26/22 08:24 AST 24 U/L (13-39) 12/26/22 08:24 ALT 23 U/L (7-52) 12/26/22 08:24 Alkaline Phosphatase 68 U/L (34-104) 12/26/22 08:24 Total Protein 7.3 gm/dl (6.0-8.3) 12/26/22 08:24 Albumin 3.8 gm/dl (3.4-5.0) 12/26/22 08:24 Globulin 3.5 gm/dl (2.5-4.0) 12/26/22 08:24 Albumin/Globulin Ratio 1.1 (0.9-2) 12/26/22 08:24 Lipase 72 U/L (11-82) 12/26/22 08:24 Urine Color Yellow 12/26/22 10:12 Urine Appearance Clear (Clear) 12/26/22 10:12 Urine pH 6.5 (4.5-7.5) 12/26/22 10:12 Ur Specific [place] 1.024 (1.000-1.030) 12/26/22 10:12 Urine Protein Negative (Negative) 12/26/22 10:12 Urine Glucose (UA) Negative (Negative) 12/26/22 10:12 Urine Ketones Negative (Negative) 12/26/22 10:12 Urine Blood Negative (Negative) 12/26/22 10:12 Urine Nitrite Negative (Negative) 12/26/22 10:12 Urine Bilirubin Negative (Negative) 12/26/22 10:12 Urine Urobilinogen Negative (Negative) 12/26/22 10:12 Ur Leukocyte Esterase Negative (Negative) 12/26/22 10:12 SARS-CoV-2, RNA, NAAT NEGATIVE (NEGATIVE) 12/26/22 10:37 Impressions Abdomen/Pelvis CT 12/26/22 08:56 CT OF THE ABDOMEN AND PELVIS WITH CONTRAST CLINICAL HISTORY: Vomiting. COMPARISON STUDY: CT of the abdomen and pelvis November 25, 2015, MR enterography December 09, 2015. TECHNIQUE: Following IV administration of 94 mL of Optiray, axial images of the abdomen and pelvis were obtained from the lung bases to the proximal femurs. Images were reviewed in the axial, sagittal, and coronal planes. IV contrast was administered without complication. Automated exposure control was utilized for the study. A dose lowering technique was utilized adhering to the principles of ALARA. CT DOSE: 1407.42 mGy.cm FINDINGS: Lung bases are unremarkable. No pneumatosis, free air or portal venous gas is present. There are gallstones within the gallbladder. There is no evidence for acute cholecystitis. Liver, spleen, adrenal glands and right kidney are normal. There is moderate left renal atrophy. No hydronephrosis. Major vasculature is patent. The majority of the small bowel is moderately dilated and fluid-filled. Small bowel feces sign is noted with transition point within the right lower quadrant, within the ileum. This is shown on image 260 of 321. The transition site is at or just distal to the small bowel anastomosis. Distal small bowel is decompressed. The appendix is normal. There is a small amount of associated ascites within the abdomen and pelvis. There is infiltration within the pelvis. A small amount of interloop fluid is also noted. No lymphadenopathy is present. IMPRESSION: Findings consistent with a moderate grade partial small bowel obstruction with transition point at or just distal to an ileal anastomosis. Small amount of associated ascites and mesenteric infiltration. No pneumatosis, free air or portal venous gas. ACT 112: Negative or not required by law. Electronically signed by: Barrie Donahue M.D. 12/26/2022 10:21 AM KUB X-Ray 12/27/22 06:30 KUB CLINICAL HISTORY: Enteric tube placement. FINDINGS: An AP supine abdominal radiograph is compared to abdominal radiographs and CT dated 12/26/2022. An enteric tube has been placed. The tip projects below the diaphragm over the proximal to mid stomach. Mildly distended and gas-filled loops of small bowel likely corresponds to the obstruction seen on yesterday's CT scan. Gas is seen in the colon. No evidence of intraperitoneal free air is identified on this supine image. There are no abnormal abdominal calcifications. The bony structures appear intact. IMPRESSION: 1. An enteric tube has been placed as above. 2. Mildly distended gas-filled loops of small bowel likely corresponds to the bowel obstruction seen on yesterday's abdominal CT. The degree of distention has significantly improved from yesterday. Electronically signed by: Dylan Keen M.D. 12/27/2022 9:44 AM Hospital Course (1) Small bowel obstruction: Acute partial small bowel obstruction - likely related to adhesions with previous history of mass removal, resection, and re-anastomosis. - NGT was initially placed for management - surgery was consulted - She was able to tolerate full diet prior to d/c with resolution of abdominal pain and nausea/vomiting - Plan for low-fiber diet for the next 1-2 weeks (2) HTN (hypertension): Continue home medications (3) Psoriatic arthritis: Continue home medications (4) COPD (chronic obstructive pulmonary disease): Well controlled- rare use of her ANDRES at home - Continue Advair - was previously on Trelegy, but was cost prohibitive (5) Mixed hyperlipidemia: Continue home medications (6) Stage 3b chronic kidney disease: Avoid further nephrotoxic medications as able Total Time Total Time Spent Total Time Spent (In Minutes): <30 Discharge Plan Discharge Items Patient Disposition: Home - Self-Care Reason For Visit: BOWEL OBSTRUCTION Discharge Diagnosis: Small bowel obstruction Activity: Per Instructions section Non-emergency contact: Primary Care Provider Call non-emergency contact if: you have any medication questions and your symptoms worsen Follow-up/Referrals: Khoi Juarez MD [Primary Care Provider] - 12/30/22 10:15 am Diet: Low Fiber Addtl Attending Provider Instructions: You were admitted with a small bowel obstruction. For the next 1-2 week slowly ease back into a normal diet. You should continue with a low fiber diet for this time frame. We did not make any changes to your home medications. You should follow up with your primary care provider in the next week or so, they should reach out to you to schedule an appointment in the next few days. If you do not hear from them, call and make an appointment. If the abdominal pain, nausea, vomiting returns please call your primary care doctor or return to the ED. Pending Studies at Discharge: No Stand-Alone Forms: [email or web address], Smoking Cessation Medications and DC Order Prescriptions: Continued gabapentin 300 mg capsule 300 mg PO TID Qty: 270 3RF carvedilol 6.25 mg tablet 6.25 mg PO BID Qty: 180 3RF Rx Instructions: must administer with a meal/food hydroxyzine HCl 25 mg tablet 25 mg PO TID PRN (Reason: itching) Qty: 60 0RF albuterol sulfate 90 mcg/actuation HFA aerosol inhaler 2 puff inhalation Q6H PRN (Reason: shortness of breath or wheezing) Qty: 6.7 0RF cholecalciferol (vitamin D3) 125 mcg (5,000 unit) capsule 125 mcg PO .Twice a week Qty: 30 4RF Rx Instructions: Sun/Thurs sulindac 150 mg tablet 150 mg PO BID (DME) nebulizers Misc See Rx Instructions .Route Qty: 1 0RF Rx Instructions: As directed (DME) nebulizer accessories Misc See Rx Instructions .Route Qty: 1 0RF Rx Instructions: As directed albuterol sulfate 1.25 mg/3 mL solution for nebulization 1.25 mg inhalation QID PRN (Reason: shortness of breath or wheezing) Qty: 90 11RF hydrocodone-homatropine [Hycodan] 5-1.5 mg/5 mL (5 mL) syrup 5 ml PO Q6H PRN (Reason: cough) Qty: 200 0RF duloxetine 60 mg capsule,delayed release(DR/EC) 60 mg PO QDL fluticasone propion-salmeterol [Advair Diskus] 500-50 mcg/dose Blister With Device 1 inh INHALATION BID methylprednisolone 4 mg tablet 4 mg PO QAM losartan 100 mg tablet 100 mg PO QAM beta-glucan 250 mg Capsule 250 mg PO QDL [employer] Cognitive Support 1 dose PO QDL esomeprazole magnesium 20 mg Tablet,Delayed Release (Dr/Ec) 20 mg PO BID ascorbic acid (vitamin C) [Vitamin C] 500 mg Tablet 500 mg PO QDL vitamin B complex Tablet 1 tab PO QDL potassium gluconate 595 mg (99 mg) Tablet 595 mg PO QDL Discharge Orders: Discharge Order (Routine); Ordered 12/28/22 Ordered By: Gricelda Rose/Other Patient Handouts: Small Bowel Obstruction, Low-Fiber Diet Admission Data Admit Date/Time: 12/26/22 11:25 Attending Provider: Mika Nath Admit Provider: Fawad Holm Primary Care Provider: Khoi Juarez Other Providers: Khoi Calvillo ; Fawad Holm Other Interventions: Discharge Summary Assessment (RN) Last Done: 12/28/22 15:29 Supervising Physician Co-Signing Physician Notes I personally examined the patient and verified all zelaya points of history and exam, discussed case, and agree with decision making with Feeling better. diet going well. Vitals noted, in general she is awake and alert pleasant no distress. HEENT normocephalic atraumatic mucous membranes m oist. Breathing unlabored no accessory muscle use good effort. Skin shows no rashes no pallor or icterus. Small bowel obstructionalmost certainly adhesionalfortunately showing good improvement. Again explained pathophysiology and general course of treatment for small bowel obstructionpatient expressed understanding. tolerating diet - safe for home Resident Activity Tracking Resident Involvement: Resident Care Provided Care Provided: Adult Hospital Medicine
--- NOTE | 2022-12-28 19:08 | Billing Data ---
Date of Service December 28, 2022 Coding Level of Care Code 29659 IN/OBS DISCH 30 MIN/LESS
--- NOTE | 2022-12-29 07:17 | Electrocardiogram Report ---
Test Reason : Blood Pressure : / mmHG Vent. Rate : 087 BPM Atrial Rate : 087 BPM P-R Int : 146 ms QRS Dur : 090 ms QT Int : 422 ms P-R-T Axes : 047 026 042 degrees QTc Int : 507 ms Normal sinus rhythm Cannot rule out Anterior infarct , age undetermined Prolonged QT Abnormal ECG When compared with ECG of 24-SEP-2022 00:45, QT has lengthened Confirmed by Godfrey Portillo ([id number]) on 12/29/2022 7:17:36 AM Referred By: Khoi Juarez Confirmed By:Godfrey Portillo
== END 2022-12-28 16:03 | disposition home or self-care (01) | DRG 390 ==
LOC: ED 07:54 → EDINP 11:25 → SUATTDRO 11:25 → 3W 15:57

== ENCOUNTER 2023-04-25 17:17 | Inpatient (IN) ==
[2023-04-25] MEDS ORDERED: SODIUM CHLORIDE 0.9% 500 ML IV SCH (19:15)
[2023-04-25 19:27] LABS: Basophils # (auto) 0.03 K/uL (0.00-0.20); Basophils % (auto) 0.3 %; Eosinophils # (auto) 0.19 K/uL (0.00-0.50); Eosinophils % (auto) 2.2 %; Hematocrit (blood only) 38.4 % (37.0-47.0); Hemoglobin 12.2 g/dl (12.0-16.0); Immature Granulocytes # (auto) 0.05 K/uL (0.01-0.20); Immature Granulocytes % (auto) 0.6 %; Lymphocytes # (auto) 1.67 K/uL (1.20-3.40); Lymphocytes % (auto) 19.1 %; Mean Corpuscular Hemoglobin 29.1 pg (25.0-34.0); Mean Corpuscular Hgb Conc 31.8 g/dL (32.0-36.0); Mean Corpuscular Volume 91.6 fL (80.0-100.0); Mean Platelet Volume 11.1 fL (9.4-12.4); Monocytes # (auto) 0.67 K/uL (0.11-0.59); Monocytes % (auto) 7.7 %; Neutrophils # (auto) 6.12 K/uL (1.40-6.50); Neutrophils % (auto) 70.1 %; Platelet Count 182 K/uL (130-400); RDW Coefficient of Variation 16.8 % (11.5-14.5); RDW Standard Deviation 56.8 fL (36.4-46.3); Red Blood Count 4.19 M/uL (4.20-5.40); White Blood Count 8.73 K/ul (4.8-10.8)
[2023-04-25 19:29] LABS: Albumin Globulin Ratio 1.3 (0.9-2); Albumin Level 3.7 gm/dl (3.4-5.0); Bilirubin,Total 0.6 mg/dl (0.2-1.0); Est GFR (African American) 48.3 ml/min; Est GFR (Non-African American) 41.6 ml/min; Globulin 2.9 gm/dl (2.5-4.0); Potassium 3.5 mmol/L (3.5-5.1); Total Protein 6.6 gm/dl (6.0-8.3)
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
[2023-04-25 19:35] LABS: Troponin I High Sensitivity 7.1 pg/ml (0-14)
[2023-04-25] MEDS ORDERED: MoRPHine SULFATE 2 MG/ML CARP IV STA (19:35)
[2023-04-25] MEDS ORDERED: ONDANSETRON INJ 2 MG/ML 2 ML VIAL IV STA (19:35)
[2023-04-25] MEDS ORDERED: ACETAMINOPHEN 1,000 MG/100 ML VIAL IV STA (19:35)
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
[2023-04-25 19:44] LABS: Thyroid Stimulating Hormone 1.843 uIu/ml (0.300-4.500)
[2023-04-25] MEDS ORDERED: OPTIRAY 320 100ml IV ONE (19:54)
[2023-04-25 19:58] LABS: Appearance Urine Cloudy (Clear); Bacteria Urine Automated Negative (Negative); Bilirubin Urine Negative (Negative); Blood Urine Negative (Negative); Color Urine Yellow; Epithelial Cell Urine Auto 20-30 /lpf (0-5); Glucose Urine UA Negative (Negative); Ketones Urine Negative (Negative); Leukocyte Esterase Urine Negative (Negative); Nitrite Urine Negative (Negative); Protein Urine Negative (Negative); RBC Urine Automated 0-4 /hpf (0-4); Specific Gravity Urine 1.015 (1.000-1.030); Urobilinogen Urine Negative (Negative); pH Urine 5.5 (4.5-7.5)
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
[2023-04-25] MEDS ORDERED: SODIUM CHLORIDE 0.9% 500 ML IV ONE (21:11)
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
[2023-04-25] MEDS ORDERED: ACETAMINOPHEN 325 MG TAB PO PRN (22:43)
[2023-04-25] MEDS ORDERED: KETOROLAC TROMETHAMINE 10 MG TABLET PO PRN (22:43)
[2023-04-25] MEDS ORDERED: ALBUTEROL HFA 8 GM INHALER INH PRN (22:43)
[2023-04-25] MEDS ORDERED: ALBUTEROL 0.083% NEBU SOLN 3 ML VIAL INH PRN (22:52)
[2023-04-26 07:20] LABS: Calcium 8.4 mg/dl (8.6-10.3); Hematocrit (blood only) 36.3 % (37.0-47.0); Hemoglobin 11.6 g/dl (12.0-16.0); Mean Corpuscular Hemoglobin 29.1 pg (25.0-34.0); Mean Platelet Volume 11.8 fL (9.4-12.4); Platelet Count 104 K/uL (130-400); Potassium 4.1 mmol/L (3.5-5.1); RDW Standard Deviation 56.5 fL (36.4-46.3); Red Blood Count 3.99 M/uL (4.20-5.40); White Blood Count 7.09 K/ul (4.8-10.8)
[2023-04-26 07:25] LABS: BUN Creatinine Ratio 21.7 (10-20); Creatinine Clr Calc Pharmacy 55.9 ml/min; Est GFR (African American) 62.9 ml/min; Est GFR (Non-African American) 54.3 ml/min
[2023-04-26] MEDS: PANTOprazole 40 MG TAB PO SCH ×2 (08:16→19:53)
[2023-04-26] MEDS: GABAPENTIN 300 MG CAP PO SCH ×3 (08:16→19:53)
[2023-04-26] MEDS: carvediloL 12.5 MG TAB PO SCH ×2 (08:16→19:53)
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
--- NOTE | 2023-04-26 08:51 | Electrocardiogram Report ---
Test Reason : Blood Pressure : / mmHG Vent. Rate : 077 BPM Atrial Rate : 077 BPM P-R Int : 172 ms QRS Dur : 092 ms QT Int : 422 ms P-R-T Axes : 053 015 028 degrees QTc Int : 477 ms Normal sinus rhythm Normal ECG When compared with ECG of 26-DEC-2022 12:46, T wave inversion no longer evident in Anterior leads Confirmed by Patrick Broussard ([id number]) on 04/26/2023 8:50:54 AM Referred By: REFERRED SELF Confirmed By:Facundo Broussard
[2023-04-26] MEDS ORDERED: SULINDAC 150 MG TAB PO SCH (09:00)
[2023-04-26] MEDS ORDERED: CYANOCOBALAMIN (B-12) 500 MCG TABLET PO SCH (09:00)
[2023-04-26] MEDS ORDERED: LOSARTAN POTASSIUM 50 MG TAB PO SCH (09:00)
[2023-04-26] MEDS ORDERED: MAGNESIUM OXIDE 400 MG TAB PO SCH (09:00)
[2023-04-26] MEDS ORDERED: FUROSEMIDE 40 MG TAB PO SCH (09:00)
[2023-04-26] MEDS ORDERED: SPIRONOLACTONE 25 MG TAB PO SCH (09:00)
--- NOTE | 2023-04-26 09:17 | XCELERA ---
[id number] [id number]
[2023-04-26] MEDS ORDERED: ASCORBIC ACID 500 MG TAB PO SCH (11:30)
[2023-04-26] MEDS ORDERED: NON-FORMULARY MEDICATION (Potassium Gluconate 595 mg (99 mg) Tablet) PO SCH (11:30)
[2023-04-26] MEDS ORDERED: VITAMIN B COMPLEX TAB PO SCH (11:30)
[2023-04-26] MEDS: oxyCODONE/ACETAMINOPHEN 5mg/325mg TAB PO PRN ×2 (12:04→19:52)
[2023-04-27] MEDS: oxyCODONE/ACETAMINOPHEN 5mg/325mg TAB PO PRN (01:41)
[2023-04-27 06:47] LABS: Hematocrit (blood only) 34.1 % (37.0-47.0); Hemoglobin 10.8 g/dl (12.0-16.0); Mean Corpuscular Hemoglobin 29.2 pg (25.0-34.0); Mean Corpuscular Hgb Conc 31.7 g/dL (32.0-36.0); Mean Corpuscular Volume 92.2 fL (80.0-100.0); Mean Platelet Volume 10.8 fL (9.4-12.4); Platelet Count 165 K/uL (130-400); RDW Coefficient of Variation 16.9 % (11.5-14.5); RDW Standard Deviation 57.8 fL (36.4-46.3); White Blood Count 7.77 K/ul (4.8-10.8)
[2023-04-27] MEDS: PANTOprazole 40 MG TAB PO SCH (08:51)
[2023-04-27] MEDS ORDERED: CHOLECALCIFEROL 5,000 UNITS 125 MCG TAB PO SCH (09:00)
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
== END 2023-04-27 12:50 | disposition home or self-care (01) | DRG 566 ==
LOC: ED 17:17 → 2S 21:39 → SUATTDRO 21:39 → 2S 22:21